=== PATIENT | female | born 1940 | race Caucasian/White ===

== ENCOUNTER 2021-04-01 07:50 | Inpatient (IN) ==
[2021-04-01] MEDS ORDERED: NORVASC PO STA (08:11)
--- NOTE | 2021-04-01 08:11 | ED.PDOC ---
General ED Provider: Dr. MARY PATTERSON Chief Complaint: Respiratory Complaint Stated Complaint: 1-2 week hx of Respiratory congestion, Coughing with worsening dyspnea at rest and exertion, having difficulty catching breath, cough non productive. Apparently has been tx by Dr Reinoso with oral antibiotics. Hx hypertension -has not taken meds Lisinopril or Norvasc Time Seen by Provider: 04/01/21 08:05 Mode of Arrival: Ambulance Information Source: Patient Exam Limitations: No limitations Primary Care Provider: SHARON REINOSO Nursing and Triage Documentation Reviewed and Agree: Yes Does patient meet sepsis criteria?: No System Inflammatory Response Syndrome: Not Applicable Sepsis Protocol: For patient's 13 years and over: Temp is 96.8 and below OR 101 and greater Pulse >90 BPM Resp >20/minute Acutely Altered Mental Status Are patient's symptoms suggestive of a new infection, such as: -Pneumonia -Skin, Soft Tissue -Endocarditis -UTI -Bone, Joint Infection -Implantable Device -Acute Abdominal Infection -Wound Infection -Meningitis -Blood Stream Catheter Infection -Unknown Respiratory Complaint Exam Shortness of Air Complaint/Exam Onset/Duration: 1 week Symptoms Are: Still present and Worse Timing: Intermittent Initial Severity: Mild Current Severity: Moderate Character: Reports Dyspnea at rest and Dyspnea on exertion Aggravating: Reports Movement, Deep breaths and Recumbent position Review of Systems Review Of Systems Constitutional: Reports Malaise and Weakness Eyes: Reports No symptoms Ears, Nose, Mouth, Throat: Reports No symptoms Respiratory: Reports Cough, Short of air and Wheezing Cardiac: Reports No symptoms GI: Reports No symptoms : Reports No symptoms Musculoskeletal: Reports No symptoms Skin: Reports No symptoms Neurological: Reports Anxiety Endocrine: Reports No symptoms Hematologic/Lymphatic: Reports No symptoms All Other Systems: Reviewed and Negative [facility] Medical History (Updated 04/01/21 @ 11:40 by YAHAIRA MATHUR RN) COPD (chronic obstructive pulmonary disease) Dyslipidemia Renal mass, right Family History (Updated 04/01/21 @ 11:41 by YAHAIRA MATHUR RN) Mother Hypertension FATHER Hypertension Surgical History H/O right nephrectomy Female Reproductive History Menstrual Age of Menarche: 14 Hx Hysterectomy: No Hx Tubal Ligation: No Date of menopause: 03/17/1955 Total pregnancies: 3 Full term: 3 Physical Exam Physical Exam Appearance: Reports Ill-appearing Ill-appearing: Moderate Pain Distress: Mild Eyes: Reports MISHEL, EOMI, Conjunctiva clear, Right pupil size and Left pupil size ENT: Reports Ears normal, Nose normal, Oropharynx normal and Dry mucosa Neck: Supple Respiratory: Reports Airway patent, Breath sounds diminished and Wheezes Cardiovascular: Reports RRR, Pulses normal and No murmur GI/: Reports Soft, Nontender, No masses, Bowel sounds normal, No Organomegaly and Bowel sounds hypoactive Musculoskeletal: Reports Normal strength Skin: Reports Warm, Dry, Normal color and Pale Neurological: Reports Sensation intact, Motor intact, Reflexes intact, Cranial nerves intact and Alert Psychiatric: Reports Affect appropriate, Mood appropriate and Anxious Interpretation Radiology Interpretation Radiology Interpretation By: Radiologist Exam Interpreted: Portable CXR ( Bibasilar opacities suspicious for pneumonia. 2. Calcific atherosclerosis. 3. Hyperexpanded lungs suggesting emphysema/chronic obstructive pulmonary disease. ) EKG Interpretation Time of EKG #1: 08:27 Rate: Normal Rhythm: Sinus Ectopy: PVCs [place]: Left ST Segment: Normal Interpretation: P_SVC and fusion complexes Critical Care Note Critical Care Note Total Critical Care Time (mins): 60 Course Course Hematology/Chemistry: 04/01/21 08:10 04/01/21 08:10 Orders, Labs, Meds: Lab Review 04/01/21 04/01/21 04/01/21 08:10 08:10 08:10 WBC 9.36 RBC 4.11 L Hgb 13.4 Hct 41.6 MCV 101.2 H MCH 32.6 H MCHC 32.2 RDW Coeff of Ashley 12.9 Plt Count 187 Immature Gran % (Auto) 0.4 Neut % (Auto) 69.1 Lymph % (Auto) 15.5 [place] % (Auto) 14.5 H Eos % (Auto) 0.3 Baso % (Auto) 0.2 Neut # (Auto) 6.5 Lymph # (Auto) 1.5 [place] # (Auto) 1.4 Eos # (Auto) 0.0 Baso # (Auto) 0.0 Immature Gran # (Auto) 0.0 PT 10.4 INR 1.00 Puncture Site Base Excess O2 Saturation ABG pH ABG pCO2 ABG pO2 ABG HCO3 ABG Total CO2 Usama Test Hemoglobin Oxyhemoglobin Carboxyhemoglobin Total Hemoglobin O2 Delivery Device FiO2 % Sodium 142.8 Potassium 3.94 Chloride 105.3 Carbon Dioxide 32.8 H Anion Gap 8.64 BUN 33.4 H Creatinine 0.95 Estimated GFR (MDRD) 57.00 BUN/Creatinine Ratio 35.15 Glucose 131.8 H Lactic Acid Calcium 10.34 H Magnesium 2.05 Ferritin Total Bilirubin 0.59 AST 28.2 ALT 15.6 Alkaline Phosphatase 41.6 L Troponin I < 0.012 Total Protein 7.28 Albumin 4.07 Globulin 3.21 Albumin/Globulin Ratio 1.26 Procalcitonin D-Dimer Urine Color Urine Clarity Urine pH Ur Specific [place] Urine Protein Urine Glucose (UA) Urine Ketones Urine Blood Urine Nitrite Urine Bilirubin Urine Urobilinogen Ur Leukocyte Esterase Urine Microscopic RBC Ur Squamous Epith Cells Amorphous Sediment Urine Bacteria Adenovirus (PCR) B. pertussis DNA (PCR) B.parapertussis DNA PCR C. pneumoniae DNA (PCR) Coronavirus OC43 (PCR) Coronavirus HKU1 (PCR) Coronavirus 229E (PCR) Coronavirus NL63 (PCR) Human Metapneumovir PCR Influenza Type A (PCR) Influenza B (RT-PCR) M. pneumoniae (PCR) Parainfluenza 1 (PCR) Parainfluenza 2 (PCR) Parainfluenza 3 (PCR) Parainfluenza 4 (PCR) RSV (PCR) Entero/Rhino (PCR) SARS-CoV-2 (PCR) 04/01/21 04/01/21 04/01/21 08:10 08:10 08:17 WBC RBC Hgb Hct MCV MCH MCHC RDW Coeff of Ashley Plt Count Immature Gran % (Auto) Neut % (Auto) Lymph % (Auto) [place] % (Auto) Eos % (Auto) Baso % (Auto) Neut # (Auto) Lymph # (Auto) [place] # (Auto) Eos # (Auto) Baso # (Auto) Immature Gran # (Auto) PT INR Puncture Site Base Excess O2 Saturation ABG pH ABG pCO2 ABG pO2 ABG HCO3 ABG Total CO2 Usama Test Hemoglobin Oxyhemoglobin Carboxyhemoglobin Total Hemoglobin O2 Delivery Device FiO2 % Sodium Potassium Chloride Carbon Dioxide Anion Gap BUN Creatinine Estimated GFR (MDRD) BUN/Creatinine Ratio Glucose Lactic Acid Calcium Magnesium Ferritin 496.00 H Total Bilirubin AST ALT Alkaline Phosphatase Troponin I Total Protein Albumin Globulin Albumin/Globulin Ratio Procalcitonin 0.10 H D-Dimer Urine Color Urine Clarity Urine pH Ur Specific [place] Urine Protein Urine Glucose (UA) Urine Ketones Urine Blood Urine Nitrite Urine Bilirubin Urine Urobilinogen Ur Leukocyte Esterase Urine Microscopic RBC Ur Squamous Epith Cells Amorphous Sediment Urine Bacteria Adenovirus (PCR) Not detected B. pertussis DNA (PCR) Not detected B.parapertussis DNA PCR Not detected C. pneumoniae DNA (PCR) Not detected Coronavirus OC43 (PCR) Not detected Coronavirus HKU1 (PCR) Not detected Coronavirus 229E (PCR) Not detected Coronavirus NL63 (PCR) Not detected Human Metapneumovir PCR Not detected Influenza Type A (PCR) Not detected Influenza B (RT-PCR) Not detected M. pneumoniae (PCR) Not detected Parainfluenza 1 (PCR) Not detected Parainfluenza 2 (PCR) Not detected Parainfluenza 3 (PCR) Not detected Parainfluenza 4 (PCR) Not detected RSV (PCR) Not detected Entero/Rhino (PCR) Detected H SARS-CoV-2 (PCR) Not detected 04/01/21 04/01/21 04/01/21 08:33 08:33 08:39 WBC RBC Hgb Hct MCV MCH MCHC RDW Coeff of Ashley Plt Count Immature Gran % (Auto) Neut % (Auto) Lymph % (Auto) [place] % (Auto) Eos % (Auto) Baso % (Auto) Neut # (Auto) Lymph # (Auto) [place] # (Auto) Eos # (Auto) Baso # (Auto) Immature Gran # (Auto) PT INR Puncture Site R rad Base Excess 8.5 H O2 Saturation 71.0 L ABG pH 7.29 L* ABG pCO2 73.0 H ABG pO2 42.0 L* ABG HCO3 35.1 H ABG Total CO2 37.3 H Usama Test Y Hemoglobin 0.3 Oxyhemoglobin 75.1 L Carboxyhemoglobin 2.8 H Total Hemoglobin 13.1 O2 Delivery Device FiO2 % 21.0 Sodium Potassium Chloride Carbon Dioxide Anion Gap BUN Creatinine Estimated GFR (MDRD) BUN/Creatinine Ratio Glucose Lactic Acid 0.70 Calcium Magnesium Ferritin Total Bilirubin AST ALT Alkaline Phosphatase Troponin I Total Protein Albumin Globulin Albumin/Globulin Ratio Procalcitonin D-Dimer 653.93 H Urine Color Urine Clarity Urine pH Ur Specific [place] Urine Protein Urine Glucose (UA) Urine Ketones Urine Blood Urine Nitrite Urine Bilirubin Urine Urobilinogen Ur Leukocyte Esterase Urine Microscopic RBC Ur Squamous Epith Cells Amorphous Sediment Urine Bacteria Adenovirus (PCR) B. pertussis DNA (PCR) B.parapertussis DNA PCR C. pneumoniae DNA (PCR) Coronavirus OC43 (PCR) Coronavirus HKU1 (PCR) Coronavirus 229E (PCR) Coronavirus NL63 (PCR) Human Metapneumovir PCR Influenza Type A (PCR) Influenza B (RT-PCR) M. pneumoniae (PCR) Parainfluenza 1 (PCR) Parainfluenza 2 (PCR) Parainfluenza 3 (PCR) Parainfluenza 4 (PCR) RSV (PCR) Entero/Rhino (PCR) SARS-CoV-2 (PCR) 04/01/21 04/01/21 09:10 09:38 WBC RBC Hgb Hct MCV MCH MCHC RDW Coeff of Ashley Plt Count Immature Gran % (Auto) Neut % (Auto) Lymph % (Auto) [place] % (Auto) Eos % (Auto) Baso % (Auto) Neut # (Auto) Lymph # (Auto) [place] # (Auto) Eos # (Auto) Baso # (Auto) Immature Gran # (Auto) PT INR Puncture Site R rad Base Excess 7.4 H O2 Saturation 83.4 L ABG pH 7.36 ABG pCO2 58.0 H ABG pO2 50.0 L* ABG HCO3 32.8 H ABG Total CO2 34.6 H [place] Test Y Hemoglobin 0.3 Oxyhemoglobin 85.8 L Carboxyhemoglobin 2.7 H Total Hemoglobin 13.1 O2 Delivery Device Vapotherm FiO2 % 28.0 Sodium Potassium Chloride Carbon Dioxide Anion Gap BUN Creatinine Estimated GFR (MDRD) BUN/Creatinine Ratio Glucose Lactic Acid Calcium Magnesium Ferritin Total Bilirubin AST ALT Alkaline Phosphatase Troponin I Total Protein Albumin Globulin Albumin/Globulin Ratio Procalcitonin D-Dimer Urine Color Yellow Urine Clarity Clear Urine pH 5.0 Ur Specific [place] >=1.030 Urine Protein 3+ H Urine Glucose (UA) Negative Urine Ketones Negative Urine Blood 1+ H Urine Nitrite Positive H Urine Bilirubin Negative Urine Urobilinogen 0.2 Ur Leukocyte Esterase Negative Urine Microscopic RBC 0-2 Ur Squamous Epith Cells Not present Amorphous Sediment 2+ Urine Bacteria 2+ Adenovirus (PCR) B. pertussis DNA (PCR) B.parapertussis DNA PCR C. pneumoniae DNA (PCR) Coronavirus OC43 (PCR) Coronavirus HKU1 (PCR) Coronavirus 229E (PCR) Coronavirus NL63 (PCR) Human Metapneumovir PCR Influenza Type A (PCR) Influenza B (RT-PCR) M. pneumoniae (PCR) Parainfluenza 1 (PCR) Parainfluenza 2 (PCR) Parainfluenza 3 (PCR) Parainfluenza 4 (PCR) RSV (PCR) Entero/Rhino (PCR) SARS-CoV-2 (PCR) Orders Category Date Time Status ADMIT PATIENT [facility]PAT[facility] ADMISSION 04/01/21 10:35 Active ABG DRAW REQUEST DAILY@0600 CARDIO 04/02/21 06:00 Ordered ABG DRAW REQUEST DAILY@0600 CARDIO 04/03/21 06:00 Ordered ABG DRAW REQUEST DAILY@0600 CARDIO 04/04/21 06:00 Ordered ABG DRAW REQUEST DAILY@0600 CARDIO 04/05/21 06:00 Ordered ABG DRAW REQUEST Stat CARDIO 04/01/21 08:12 Completed ABG DRAW REQUEST Stat CARDIO 04/01/21 09:30 Completed EKG-(ED ONLY) Stat CARDIO 04/01/21 08:12 Completed METERED DOSE INHALATION Routine CARDIO 04/01/21 08:13 Completed OXYGEN Routine CARDIO 04/01/21 08:12 Active VAPOTHERM Routine CARDIO 04/01/21 09:14 Active ACTIVITY .Up With Assistance CARE 04/01/21 10:38 Active BLOOD GLUCOSE MONITORING (MED/SURG) 0630,1100,[id number] CARE 04/01/21 10:39 Active INTAKE & OUTPUT Q8HR CARE 04/01/21 10:38 Active TELEMETRY MONITORING TELE CARE 04/01/21 10:35 Active VITAL SIGNS Q4HR CARE 04/01/21 10:38 Active REGULAR DIET DIETARY 04/01/21 Lunch Ordered ABG COOX DAILY@0600 LAB 04/02/21 06:00 Ordered ABG COOX DAILY@0600 LAB 04/03/21 06:00 Ordered ABG COOX Stat LAB 04/01/21 08:39 Completed ARTERIAL BLOOD GAS [ABG COOX] Stat LAB 04/01/21 09:38 Completed BLOOD CULTURE (ED ONLY) Stat LAB 04/01/21 08:33 Received CBC W/ AUTO DIFF DAILY@0600 LAB 04/02/21 06:00 Ordered CBC W/ AUTO DIFF DAILY@0600 LAB 04/03/21 06:00 Ordered CBC W/ AUTO DIFF Stat LAB 04/01/21 08:10 Completed CMP [COMPREHENSIVE METABOLIC PANEL] Stat LAB 04/01/21 08:10 Completed COMPREHENSIVE METABOLIC PANEL DAILY@0600 LAB 04/02/21 06:00 Ordered COMPREHENSIVE METABOLIC PANEL DAILY@0600 LAB 04/03/21 06:00 Ordered D-DIMER Stat LAB 04/01/21 08:33 Completed FERRITIN Stat LAB 04/01/21 08:10 Completed LACTIC ACID Stat LAB 04/01/21 08:33 Completed MAGNESIUM Stat LAB 04/01/21 08:10 Completed PROCALCITONIN Stat LAB 04/01/21 08:10 Completed PT WITH INR Stat LAB 04/01/21 08:10 Completed RESPIRATORY PANEL 2.1 (PCR) Stat LAB 04/01/21 08:17 Completed SPUTUM CULTURE Stat LAB 04/01/21 08:17 Uncollected TROPONIN I Q8H LAB 04/01/21 16:45 Ordered TROPONIN I Q8H LAB 04/02/21 00:45 Ordered TROPONIN I Stat LAB 04/01/21 08:10 Completed UA [URINALYSIS C & S IF INDICATED] Stat LAB 04/01/21 09:10 Completed Albuterol Inhaler(with Spacer) [Ventolin Hfa (Per Puff- MEDS 04/01/21 08:12 Discontinued with Spacer)] 2 puff IH ONCE STA Amlodipine Besylate [Norvasc] MEDS 04/01/21 08:11 Discontinued 10 mg PO ONCE STA Azithromycin [Zithromax] MEDS 04/01/21 10:38 Discontinued 500 mg PO ONCE STA Ceftriaxone/D5w 1 gm Premix [Rocephin 1 gm/50 ml D5w] MEDS 04/02/21 09:00 Active 1 gm in 50 ml IV DAILY Ceftriaxone/D5w 1 gm Premix [Rocephin 1 gm/50 ml D5w] MEDS 04/01/21 09:45 Discontinued 1 gm in 50 ml IV ONCE Famotidine [Pepcid] MEDS 04/01/21 09:47 Discontinued 40 mg PO ONCE STA Methylprednisolone Sod Succ/Pf [Solu-Medrol 125 mg] MEDS 04/01/21 10:41 Discontinued 125 mg IVP ONCE ONE Methylprednisolone Sod Succ/Pf [Solu-Medrol 40 mg] MEDS 04/01/21 13:00 Discontinued 40 mg IVP Q8HR Ondansetron HCl/Pf [Zofran 4 mg/2 ml] MEDS 04/01/21 10:38 Active 4 mg IVP Q6H PRN RESUSCITATION STATUS Routine OTHERS 04/01/21 10:38 Completed CXR [CHEST, 1V AP ONLY] Stat RADS 04/01/21 09:00 Completed PT CONSULT Routine THERAPIES 04/01/21 Ordered Medications Generic Name Dose Route Start Last Admin Trade Name Freq PRN Reason Stop Dose Admin Albuterol/Ipratropium 3 ml 04/01/21 14:00 Ipratropium/Albuterol Vial.[facility] RTTID ABA Amlodipine Besylate 5 mg 04/01/21 21:00 Amlodipine Besylate 5 Mg Tablet PO BEDTIME ABA Aspirin 81 mg 04/01/21 13:00 04/01/21 13:48 Aspirin 81 Mg Tablet. PO 81 mg DAILYWM ABA Administration Budesonide 1 mg 04/01/21 20:00 Budesonide 1 Mg/2 Ml Vial.[facility] [id number] [facility] Carvedilol 25 mg 04/01/21 17:00 Carvedilol 12.5 Mg Tablet PO BIDWM ABA Fenofibrate 160 mg 04/01/21 13:00 04/01/21 13:48 Fenofibrate 160 Mg Tablet PO 160 mg DAILY ABA Administration CEFTRIAXONE/D5W 1 GM PREMIX 1 gm in 50 mls @ 75 mls/hr 04/02/21 09:00 Rocephin 1 Gm/50 Ml D5w IV 04/05/21 08:59 DAILY ABA Doxycycline Hyclate 100 mg/ 100 mls @ 50 mls/hr 04/01/21 13:00 04/01/21 13:47 Sodium Chloride IV 04/04/21 12:59 50 mls/hr Q12HR ABA Administration Sodium Chloride 1,000 mls @ 75 mls/hr 04/01/21 13:00 04/01/21 13:48 Sodium Chloride IV 04/02/21 02:19 75 mls/hr .[id number] ABA Administration Levothyroxine Sodium 100 mcg 04/01/21 13:00 04/01/21 13:48 Levothyroxine Sodium 100 Mcg Tablet PO 100 mcg QDAC ABA Administration Lisinopril 40 mg 04/01/21 13:00 04/01/21 13:48 Lisinopril 40 Mg Tablet PO 40 mg DAILY ABA Administration Lovastatin 40 mg 04/01/21 17:00 Lovastatin 20 Mg Tablet PO QPM ABA Methylprednisolone Sodium Succinate 125 mg 04/01/21 13:00 04/01/21 13:06 Methylprednisolone Sod Succ/Pf 125 Mg/2 Ml Vial IVP Not Given Q8HR ABA Ondansetron HCl 4 mg 04/01/21 10:38 Ondansetron Hcl/Pf 4 Mg/2 Ml Sdv IVP Q6H PRN Nausea / Vomiting Discontinued Medications Generic Name Dose Route Start Last Admin Trade Name Freq PRN Reason Stop Dose Admin Albuterol Sulfate 2 puff 04/01/21 08:12 04/01/21 08:39 Albuterol Sulfate (Ventolin Hfa) 18 Gm 1 Puff With Spacer IH 04/01/21 08:13 2 puff ONCE STA Administration Amlodipine Besylate 10 mg 04/01/21 08:11 04/01/21 08:15 Amlodipine Besylate 5 Mg Tablet PO 04/01/21 08:12 10 mg ONCE STA Administration Azithromycin 500 mg 04/01/21 10:38 04/01/21 10:49 Azithromycin 250 Mg Tablet PO 04/01/21 10:39 500 mg ONCE STA Administration Famotidine 40 mg 04/01/21 09:47 04/01/21 09:52 Famotidine 20 Mg Tablet PO 04/01/21 09:48 40 mg ONCE STA Administration CEFTRIAXONE/D5W 1 GM PREMIX 1 gm in 50 mls @ 75 mls/hr 04/01/21 09:45 04/01/21 09:53 Rocephin 1 Gm/50 Ml D5w IV 04/01/21 10:24 75 mls/hr ONCE STA Administration Sodium Chloride 1,000 mls @ 75 mls/hr 04/01/21 13:00 Sodium Chloride IV .[id number] ABA Methylprednisolone Sodium Succinate 40 mg 04/01/21 13:00 Methylprednisolone Sod Succ/Pf 40 Mg/Ml Vial IVP Q8HR ABA Methylprednisolone Sodium Succinate 125 mg 04/01/21 10:41 04/01/21 10:49 Methylprednisolone Sod Succ/Pf 125 Mg/2 Ml Vial IVP 04/01/21 10:42 125 mg ONCE ONE Administration Vital Signs: Temp Pulse Resp BP Pulse Ox 04/01/21 10:15 61 20 93 L 12/16/21 10:00 93 L 04/01/21 09:42 62 22 159/83 H 91 L 04/01/21 09:04 98 04/01/21 08:46 73 28 H 198/77 H 99 04/01/21 08:13 97.1 F L 69 21 210/88 H 98 04/01/21 07:56 97.1 F L 85 24 212/85 H 82 L Discharge Plan Discharge Patient Disposition: ADMITTED INPATIENT Discharge Problem: Acute respiratory disease, Acute respiratory failure with hypoxia and hypercarbia, Pneumonitis, Hypertension, Hypothyroidism (acquired) ED Provider: MARY PATTERSON Condition: Stable Physician Progress Note: []
[2021-04-01] MEDS ORDERED: VENTOLIN HFA (PER PUFF-WITH SPACER) IH STA (08:12)
[2021-04-01 08:42] LABS: ABG O2 HGB 75.1 % (95-100); BEecf 8.5 (-2.0-3.0); COHb 2.8 (0.5-1.5); HCO3 35.1 (21-28); MetHb 0.3 (0-1.5); TCO2 37.3 (19-24); tHb 13.1 g/dl (11.7-17.4)
[2021-04-01 08:45] LABS: BASOPHILS % (AUTO) 0.2 % (0.0-3.0); EOSINOPHILS % (AUTO) 0.3 % (0.0-7.0); HEMATOCRIT 41.6 % (37.0-47.0); HEMOGLOBIN 13.4 g/dl (12.0-16.0); IMMATURE GRANULOCYTE % (AUTO) 0.4 % (0.0-5.0); LYMPHOCYTES # (AUTO) 1.5 K/uL (0.60-3.4); LYMPHOCYTES % (AUTO) 15.5 (10.0-50.0); MEAN CORPUSCULAR HEMOGLOBIN 32.6 pg (27.0-31.0); MEAN CORPUSCULAR HGB CONC 32.2 (31.8-35.4); MEAN CORPUSCULAR VOLUME 101.2 fl (81.0-99.0); MONOCYTES # (AUTO) 1.4 K/uL (0.4-2.0); MONOCYTES % (AUTO) 14.5 (0-10); NEUTROPHILS # (AUTO) 6.5 K/ul (2.0-6.9); NEUTROPHILS % (AUTO) 69.1 % (42.2-75.2); PLATELET COUNT 187 10^3/uL (140-440); RDW COEFFICIENT OF VARIATION 12.9 % (11.6-14.8); RED BLOOD COUNT 4.11 10^6/ul (4.20-5.40); WHITE BLOOD COUNT 9.36 K/ul (4.6-10.2)
[2021-04-01 08:46] LABS: ABG PH 7.29 (7.35-7.45)
[2021-04-01 08:53] LABS: ALANINE AMINOTRANSFERASE 15.6 U/L (0-35); ALBUMIN 4.07 g/dL (3.5-5.0); ALKALINE PHOSPHATASE 41.6 U/L (53-141); ASPARTATE AMINO TRANSFERASE 28.2 U/L (14-36); BILIRUBIN,TOTAL 0.59 mg/dL (0.2-1.3); BLOOD UREA NITROGEN 33.4 mg/dL (7-17); CALCIUM 10.34 mg/dL (8.4-10.2); CARBON DIOXIDE 32.8 mmol/L (22-30.0); CHLORIDE 105.3 mmol/L (98-107); CREATININE 0.95 mg/dL (0.60-1.30); GLUCOSE 131.8 mg/dL (74-106); MAGNESIUM 2.05 mg/dL (1.6-2.3); POTASSIUM 3.94 mmol/L (3.5-5.1); SODIUM 142.8 mmol/L (134.5-145); TOTAL PROTEIN 7.28 g/dL (6.3-8.2)
[2021-04-01 08:56] LABS: PROTHROMBIN TIME 10.4 SEC (9.3-11.0)
[2021-04-01 09:13] LABS: TROPONIN I < 0.012 ng/ml (0.0000-0.120)
[2021-04-01 09:21] LABS: BILIRUBIN,URINE Negative (NEGATIVE); CLARITY,URINE Clear (CLEAR); COLOR,URINE Yellow (YELLOW); GLUCOSE, URINE (UA) Negative (NEGATIVE); KETONES,URINE Negative (NEGATIVE); LEUKOCYTE ESTERASE ,URINE Negative (NEGATIVE); NITRITE,URINE Positive (NEGATIVE); PROTEIN,URINE 3+ (NEGATIVE); URINE, BLOOD 1+ (NEGATIVE); UROBILINOGEN,URINE 0.2 (0.2)
[2021-04-01 09:28] LABS: SQUAMOUS EPITHELIAL CELL,UR NOT PRESENT (0-5)
[2021-04-01 09:29] LABS: AMORPHOUS SEDIMENT,UR 2+ (NOT PRESENT); BACTERIA,URINE 2+ (NOT PRESENT); URINE RBC, MICROSCOPIC 0-2 (0-2)
[2021-04-01 09:41] LABS: ABG O2 HGB 85.8 % (95-100); ABG PH 7.36 (7.35-7.45); BEecf 7.4 (-2.0-3.0); COHb 2.7 (0.5-1.5); HCO3 32.8 (21-28); MetHb 0.3 (0-1.5); TCO2 34.6 (19-24); sO2 83.4 % (94-98); tHb 13.1 g/dl (11.7-17.4)
[2021-04-01] MEDS ORDERED: ROCEPHIN 1 GM/50 ML D5W 1 GM/50 ML BAG IV STA (09:45)
[2021-04-01] MEDS ORDERED: PEPCID PO STA (09:47)
--- NOTE | 2021-04-01 09:47 | DI ---
EXAM: Frontal view of the chest. HISTORY: Concern for COVID-19 pneumonia. Shortness of breath. COMPARISON: Radiograph 03/26/2019. FINDINGS: Bones appear diffusely demineralized. Old left proximal humerus fracture noted. Normal heart size. Calcific atherosclerosis. Bibasilar ground-glass opacities. Hyperexpanded lungs. No visible effusion or pneumothorax. No acute osseous abnormality. IMPRESSION: 1. Bibasilar opacities suspicious for pneumonia. 2. Calcific atherosclerosis. 3. Hyperexpanded lungs suggesting emphysema/chronic obstructive pulmonary disease.
[2021-04-01 10:06] LABS: BORDETELLA PARAPERTUSSIS (PCR) NOT DETECTED (NOT DETECT); BORDETELLA PERTUSSIS (PCR) NOT DETECTED (NOT DETECT); CHLAMYDIA PNEUMONIAE (PCR) NOT DETECTED (NOT DETECT); CORONAVIRUS 229E (PCR) NOT DETECTED (NOT DETECT); CORONAVIRUS HKU1 (PCR) NOT DETECTED (NOT DETECT); CORONAVIRUS NL63 (PCR) NOT DETECTED (NOT DETECT); CORONAVIRUS OC43 (PCR) NOT DETECTED (NOT DETECT); HUMAN METAPNEUMOVIRUS (PCR) NOT DETECTED (NOT DETECT); INFLUENZA B (PCR) NOT DETECTED (NOT DETECT); MYCOPLASMA PNEUMONIAE (PCR) NOT DETECTED (NOT DETECT); PARAINFLUENZA VIRUS 1 (PCR) NOT DETECTED (NOT DETECT); PARAINFLUENZA VIRUS 2 (PCR) NOT DETECTED (NOT DETECT); PARAINFLUENZA VIRUS 3 (PCR) NOT DETECTED (NOT DETECT); PARAINFLUENZA VIRUS 4 (PCR) NOT DETECTED (NOT DETECT); RESPIRATORY SYNCYTIAL V (PCR) NOT DETECTED (NOT DETECT); SARS_COV_2 (PCR) NOT DETECTED (NOT DETECT)
[2021-04-01 10:32] LABS: ADENOVIRUS (PCR) NOT DETECTED (NOT DETECT); HUMAN RHINOVIRUS/ENTEROV (PCR) DETECTED (NOT DETECT)
[2021-04-01] MEDS ORDERED: XOPENEX 0.63 MG NEB PRN (10:38)
[2021-04-01] MEDS ORDERED: ZITHROMAX PO STA (10:38)
[2021-04-01] MEDS ORDERED: ZOFRAN 4 MG/2 ML IVP PRN (10:38)
[2021-04-01] MEDS ORDERED: SOLU-MEDROL 125 MG IVP ONE (10:41)
[2021-04-01 11:37] VITALS: BMI 27.6
[2021-04-01] MEDS ORDERED: SOLU-MEDROL 40 MG IVP SCH ×2 (13:00)
[2021-04-01] MEDS ORDERED: SODIUM CHLORIDE 1,000 ML IV SCH ×2 (13:00)
[2021-04-01] MEDS ORDERED: FENOFIBRATE NANOCRYSTALLIZED 145 MG PO SCH (13:00)
[2021-04-01] MEDS: SOLU-MEDROL 125 MG IVP SCH ×2 (13:06→21:19)
[2021-04-01] MEDS: DOXY-100 100 MG in SODIUM CHLORIDE 100ML 100 ML IV SCH ×2 (13:47→21:19)
[2021-04-01] MEDS: ZESTRIL PO SCH (13:48)
[2021-04-01] MEDS: SYNTHROID PO SCH (13:48)
[2021-04-01] MEDS: ASPIRIN EC PO SCH (13:48)
[2021-04-01] MEDS: TRIGLIDE PO SCH (13:48)
[2021-04-01] MEDS: DUONEB NEB SCH ×2 (14:18→21:49)
[2021-04-01] MEDS: COREG PO SCH (17:33)
[2021-04-01] MEDS: MEVACOR PO SCH (17:33)
[2021-04-01] MEDS: PULMICORT 1 MG/2 ML NEB SCH (20:55)
[2021-04-01] MEDS ORDERED: NORVASC PO SCH (21:00)
[2021-04-01] MEDS: HUMULIN R SUBCUT PRN (21:19)
[2021-04-02 04:21] LABS: ABG O2 HGB 90.7 % (95-100); ABG PH 7.37 (7.35-7.45); BEecf 7.1 (-2.0-3.0); COHb 1.5 (0.5-1.5); HCO3 32.4 (21-28); MetHb 0.2 (0-1.5); TCO2 34.1 (19-24); tHb 15.2 g/dl (11.7-17.4)
[2021-04-02] MEDS: DUONEB NEB SCH ×3 (04:48→20:25)
[2021-04-02] MEDS: PULMICORT 1 MG/2 ML NEB SCH ×2 (04:48→20:25)
[2021-04-02] MEDS: SOLU-MEDROL 125 MG IVP SCH ×3 (05:37→20:57)
[2021-04-02] MEDS: SYNTHROID PO SCH (05:38)
[2021-04-02] MEDS: HUMULIN R SUBCUT PRN ×4 (05:45→21:22)
[2021-04-02 06:29] LABS: HEMATOCRIT 39.6 % (37.0-47.0); HEMOGLOBIN 12.8 g/dl (12.0-16.0); IMMATURE GRANULOCYTE % (AUTO) 0.6 % (0.0-5.0); LYMPHOCYTES # (AUTO) 0.7 K/uL (0.60-3.4); LYMPHOCYTES % (AUTO) 13.2 (10.0-50.0); MEAN CORPUSCULAR HEMOGLOBIN 32.6 pg (27.0-31.0); MEAN CORPUSCULAR HGB CONC 32.3 (31.8-35.4); MEAN CORPUSCULAR VOLUME 100.8 fl (81.0-99.0); MONOCYTES # (AUTO) 0.1 K/uL (0.4-2.0); MONOCYTES % (AUTO) 1.8 (0-10); NEUTROPHILS # (AUTO) 4.3 K/ul (2.0-6.9); NEUTROPHILS % (AUTO) 84.4 % (42.2-75.2); PLATELET COUNT 196 10^3/uL (140-440); RDW COEFFICIENT OF VARIATION 12.8 % (11.6-14.8); RED BLOOD COUNT 3.93 10^6/ul (4.20-5.40); WHITE BLOOD COUNT 5.14 K/ul (4.6-10.2)
[2021-04-02 06:55] LABS: ALANINE AMINOTRANSFERASE 13.3 U/L (0-35); ALBUMIN 3.69 g/dL (3.5-5.0); ALKALINE PHOSPHATASE 39.3 U/L (53-141); ASPARTATE AMINO TRANSFERASE 21.8 U/L (14-36); BILIRUBIN,TOTAL 0.49 mg/dL (0.2-1.3); BLOOD UREA NITROGEN 34.3 mg/dL (7-17); CALCIUM 9.84 mg/dL (8.4-10.2); CARBON DIOXIDE 33.4 mmol/L (22-30.0); CHLORIDE 107.7 mmol/L (98-107); CREATININE 1.01 mg/dL (0.60-1.30); GLUCOSE 163.1 mg/dL (74-106); POTASSIUM 3.95 mmol/L (3.5-5.1); SODIUM 143.2 mmol/L (134.5-145); TOTAL PROTEIN 6.81 g/dL (6.3-8.2)
[2021-04-02 06:58] LABS: TROPONIN I < 0.012 ng/ml (0.0000-0.120)
[2021-04-02] MEDS ORDERED: ZESTRIL PO SCH (09:00)
--- NOTE | 2021-04-02 09:07 | PCM.PROG ---
Attending Provider: ATTENDING PROVIDER: Dr. SHARON REINOSO DATE OF SERVICE: 04/02/21 SUBJECTIVE: This 80 year old /WHITE F was hospitalized 04/01/21 with respiratory with increasing shortness of breath and CO2 retention. The patient is on Vapotherm. PO2 more than 50. PCO2 is in same range with normal pH. Feeling a lot better. No distress. REVIEW OF SYSTEMS: CONSTITUTIONAL: No night sweats. No fatigue, malaise, lethargy. No fever or chills. HEENT: Eyes: No visual changes. No eye pain. No eye discharge. ENT: No runny nose. No epistaxis. No sinus pain. No odynophagia. No congestion. RESPIRATORY: No cough, no congestion. No hemoptysis. No shortness of breath. CARDIOVASCULAR: No angina symptoms. No CHF symptoms. No atypical chest pain for CAD. No palpitations. No orthopnea.. GASTROINTESTINAL: No abdominal pain. No nausea or vomiting. No diarrhea or constipation. No hematemesis. No hematochezia. GENITOURINARY: No urgency. No frequency. No dysuria. No hematuria. No obstructive symptoms. No discharge. No pain. No significant abnormal bleeding. MUSCULOSKELETAL: No musculoskeletal pain; no joint swelling. NEUROLOGICAL: Awake, alert, oriented to time, place and person. No headache. No neck pain. No syncope. No seizures. No dizziness. PSYCHIATRIC: Not anxious. No depression. No suicidal thoughts. No homicidal thoughts. SKIN: No rash. No lesions. No wounds. ENDOCRINE: No unexplained weight loss. No weight gain. HEMATOLOGIC/LYMPHATIC: No anemia. No purpura. No petechiae. No prolonged or excessive bleeding. No palpable lymph nodes. PHYSICAL EXAMINATION: GENERAL: The patient is awake, alert and oriented, lying in bed in no distress. VITAL SIGNS: Temperature 97.8 F, Pulse 67, Respiratory Rate 18, BP 168/84, Pulse Ox 94% HEENT: Head normocephalic, atraumatic. Eyes: Extraocular muscles are intact. Pupils are equal, round and reactive to light and accommodation. Ears: No lesions. Nose appeared normal. Throat: No exudate or erythema. NECK: Supple. No JVD, no carotid bruit. No lymphadenopathy or thyromegaly. LUNGS: Decreased breath sounds. Clear to auscultation. Percussion note normal. Chest symmetrical. HEART: S1, S2, no S3. No murmurs. No cyanosis or clubbing. No ascites. Pulses: Dorsalis pedis and posterior tibial pulses +1 to +2 both sides. ABDOMEN: Soft. Non-tender. Bowel sounds active. No CVA tenderness. No mass felt. EXTREMITIES: No edema. Full range of motion of all extremities, equal. NEUROLOGIC: No focal deficit. Cranial nerves II through XII are grossly intact. No headache, no double vision or headache. SKIN: Warm and dry. Intact. Turgor-normal. LYMPHATIC: No palpable lymph nodes/no lymphedema. MUSCULOSKELETAL: Normal joints with no swelling. Muscle tone is normal. LAB REVIEW: 04/02/21 05:00 04/02/21 05:00 04/02/21 05:00: Sodium 143.2, Potassium 3.95, Chloride 107.7 H, Carbon Dioxide 33.4 H, Anion Gap 6.05, BUN 34.3 H, Creatinine 1.01, Estimated GFR (MDRD) 53.00, BUN/Creatinine Ratio 33.96, Glucose 163.1 H, Calcium 9.84, Total Bilirubin 0.49, AST 21.8, ALT 13.3, Alkaline Phosphatase 39.3 L, Troponin I < 0.012, Total Protein 6.81, Albumin 3.69, Globulin 3.12, Albumin/Globulin Ratio 1.18 04/02/21 05:00: WBC 5.14, RBC 3.93 L, Hgb 12.8, Hct 39.6, MCV 100.8 H, MCH 32.6 H, MCHC 32.3, RDW Coeff of Ashley 12.8, Plt Count 196, Immature Gran % (Auto) 0.6, Neut % (Auto) 84.4 H, Lymph % (Auto) 13.2, [place] % (Auto) 1.8, Eos % (Auto) 0.0, Baso % (Auto) 0.0, Neut # (Auto) 4.3, Lymph # (Auto) 0.7, [place] # (Auto) 0.1 L, Eos # (Auto) 0.0, Baso # (Auto) 0.0, Immature Gran # (Auto) 0.0 04/02/21 04:15: Puncture Site Lrad, Base Excess 7.1 H, O2 Saturation 91.0 L, ABG pH 7.37, ABG pCO2 56.0 H, ABG pO2 63.0 L, ABG HCO3 32.4 H, ABG Total CO2 34.1 H, Usama Test +, Hemoglobin 0.2, Oxyhemoglobin 90.7 L, Carboxyhemoglobin 1.5, Total Hemoglobin 15.2, O2 Delivery Device Vapotherm, FiO2 % 35.0 04/01/21 16:51: Troponin I 0.051 04/01/21 11:10: Free T4 2.03 04/01/21 09:38: Puncture Site R rad, Base Excess 7.4 H, O2 Saturation 83.4 L, ABG pH 7.36, ABG pCO2 58.0 H, ABG pO2 50.0 L*, ABG HCO3 32.8 H, ABG Total CO2 34.6 H, Usama Test Y, Hemoglobin 0.3, Oxyhemoglobin 85.8 L, Carboxyhemoglobin 2.7 H, Total Hemoglobin 13.1, O2 Delivery Device Vapotherm, FiO2 % 28.0 04/01/21 09:10: Urine Color Yellow, Urine Clarity Clear, Urine pH 5.0, Ur Specific [place] >=1.030, Urine Protein 3+ H, Urine Glucose (UA) Negative, Urine Ketones Negative, Urine Blood 1+ H, Urine Nitrite Positive H, Urine Bilirubin Negative, Urine Urobilinogen 0.2, Ur Leukocyte Esterase Negative, Urine Microscopic RBC 0-2, Ur Squamous Epith Cells Not present, Amorphous Sediment 2+, Urine Bacteria 2+ 04/01/21 08:39: Puncture Site R rad, Base Excess 8.5 H, O2 Saturation 71.0 L, ABG pH 7.29 L*, ABG pCO2 73.0 H, ABG pO2 42.0 L*, ABG HCO3 35.1 H, ABG Total CO2 37.3 H, Usama Test Y, Hemoglobin 0.3, Oxyhemoglobin 75.1 L, Carboxyhemoglobin 2.8 H, Total Hemoglobin 13.1, FiO2 % 21.0 04/01/21 08:33: Lactic Acid 0.70 04/01/21 08:33: D-Dimer 653.93 H 04/01/21 08:17: Adenovirus (PCR) Not detected, B. pertussis DNA (PCR) Not detected, B.parapertussis DNA PCR Not detected, C. pneumoniae DNA (PCR) Not detected, Coronavirus OC43 (PCR) Not detected, Coronavirus HKU1 (PCR) Not detected, Coronavirus 229E (PCR) Not detected, Coronavirus NL63 (PCR) Not detected, Human Metapneumovir PCR Not detected, Influenza Type A (PCR) Not detected, Influenza B (RT-PCR) Not detected, M. pneumoniae (PCR) Not detected, Parainfluenza 1 (PCR) Not detected, Parainfluenza 2 (PCR) Not detected, Parainfluenza 3 (PCR) Not detected, Parainfluenza 4 (PCR) Not detected, RSV (PCR) Not detected, Entero/Rhino (PCR) Detected H, SARS-CoV-2 (PCR) Not detected 04/01/21 08:10: Ferritin 496.00 H 04/01/21 08:10: Procalcitonin 0.10 H 04/01/21 08:10: PT 10.4, INR 1.00 04/01/21 08:10: Sodium 142.8, Potassium 3.94, Chloride 105.3, Carbon Dioxide 32.8 H, Anion Gap 8.64, BUN 33.4 H, Creatinine 0.95, Estimated GFR (MDRD) 57.00, BUN/Creatinine Ratio 35.15, Glucose 131.8 H, Calcium 10.34 H, Magnesium 2.05, Total Bilirubin 0.59, AST 28.2, ALT 15.6, Alkaline Phosphatase 41.6 L, Troponin I < 0.012, Total Protein 7.28, Albumin 4.07, Globulin 3.21, Albumin/Globulin Ratio 1.26 04/01/21 08:10: WBC 9.36, RBC 4.11 L, Hgb 13.4, Hct 41.6, MCV 101.2 H, MCH 32.6 H, MCHC 32.2, RDW Coeff of Ashley 12.9, Plt Count 187, Immature Gran % (Auto) 0.4, Neut % (Auto) 69.1, Lymph % (Auto) 15.5, [place] % (Auto) 14.5 H, Eos % (Auto) 0.3, Baso % (Auto) 0.2, Neut # (Auto) 6.5, Lymph # (Auto) 1.5, [place] # (Auto) 1.4, Eos # (Auto) 0.0, Baso # (Auto) 0.0, Immature Gran # (Auto) 0.0 ASSESSMENT: Please see below. 1. Chronic respiratory failure decompensated seems to be better now PLAN: 1. Continue steroids and NEBS 2. Zestril 40mg BID Plan and coordination of the patient's care discussed in the presence of Head Rigger and nurse. SCRIBED BY: KATIA CHILDRESS [employer] Filter Operator scribed while in presence of service performed by Dr. SHARON REINOSO on 04/02/21 ([id number])
[2021-04-02] MEDS: ASPIRIN EC PO SCH (09:32)
[2021-04-02] MEDS: ZESTRIL PO SCH (09:32)
[2021-04-02] MEDS: TRIGLIDE PO SCH (09:32)
[2021-04-02] MEDS: ROCEPHIN 1 GM/50 ML D5W 1 GM/50 ML BAG IV SCH (09:33)
[2021-04-02] MEDS: NORVASC PO SCH ×2 (09:33→20:57)
[2021-04-02] MEDS: COREG PO SCH ×2 (09:33→16:28)
--- NOTE | 2021-04-02 10:25 | HP ---
DATE OF SERVICE: 04/01/2021 REASON FOR HOSPITALIZATION/HISTORY OF PRESENT ILLNESS: 80 year old white female who present to the emergency room complaining of cough, congestion and shortness of breath at rest. She had called into the office complaining of upper respiratory infection on the and she refused to COVID test. She complained of cough and headache. She has not been vaccinated for COVID. We called her in a Z-pack 250mg and Prednisone 10mg PO BID. PAST MEDICAL HISTORY: Chronic kidney disease stage III to IV Smoker LVH Hypertension Increased LV cavity , 6cm Osteoporosis COPD History of right renal cancer with right nephrectomy 08/30 Dyslipidemia Obesity Carotid stenosis Left ICA 50-70% Hypothyroidism History of TIA Polyarthritis Noncompliance with diet, lifestyle and medications and followup. Dependent leg edema History of acute pancreatitis secondary to gallstones for which she had a cholecystectomy in 04/04. Had to have an ERCP Refused colonoscopy and mammogram since she has been our patient PAST SURGICAL HISTORY: Cholecystectomy 04/04 Right nephrectomy 08/30 at [place] Left Humerus fracture about 30 years ago. REVIEW OF SYSTEMS: CONSTITUTIONAL: No night sweats. No fatigue, malaise, lethargy. No fever or chills. HEENT: Eyes: No visual changes. No eye pain. No eye discharge. ENT: No runny nose. No epistaxis. No sinus pain. No sore throat. No odynophagia. No ear pain. No congestion. RESPIRATORY: Cough, no congestion. No hemoptysis. Shortness of breath. Wheezing. CARDIOVASCULAR: No angina symptoms. No CHF symptoms. No atypical chest pain for CAD. No palpitations. No PND. No orthopnea. GASTROINTESTINAL: No abdominal pain. No nausea or vomiting. No diarrhea or constipation. No hematemesis. No hematochezia. GENITOURINARY: No urgency. No frequency. No dysuria. No hematuria. No obstructive symptoms. No discharge. No pain. No significant abnormal bleeding. MUSCULOSKELETAL: No musculoskeletal pain. No joint swelling. No arthritis. NEUROLOGICAL: No headache. No neck pain. No syncope. No seizures. No dizziness. PSYCHIATRIC: Not anxious. No depression. No suicidal thoughts. No homicidal thoughts. SKIN: No rash. No lesions. No wounds. ENDOCRINE: No unexplained weight loss. No weight gain. HEMATOLOGIC/LYMPHATIC: No anemia. No purpura. No petechiae. No prolonged or excessive bleeding. No palpable lymph nodes. PERSONAL/FAMILY/SOCIAL HISTORY: CVA and heart disease. She lives at home with her daughter. She is heavy smoker. She is . No alcohol or illicit drug use. MEDICATIONS: Lisinopril 40mg PO daily Norvasc 5mg PO bedtime Coreg 25mg PO BID Lovastatin 40mg PO bedtime Aspirin 81mg PO daily Levothyroxine 100mcg PO daily Tricor 145mg PO daily ALLERGIES: No known allergies PHYSICAL EXAMINATION: VITAL SIGNS: Temperature 97.1, heart rate 85, respiratory rate 24, blood pressure 212/85 and pulse ox 82% on room air. HEENT: Head normocephalic, atraumatic. Eyes: Extraocular muscles are intact. Pupils are equal, round and reactive to light and accommodation. Ears: No lesions. Nose appeared normal. Throat: No exudate or erythema. NECK: Supple. No JVD, no carotid bruit. No lymphadenopathy or thyromegaly. LUNGS: Severely diminished breath sounds with bilateral inspiratory and expiratory wheezing. Clear to auscultation. Percussion note normal. Chest symmetrical. HEART: S1, S2, no S3. No murmur. No cyanosis or clubbing. No ascites. Pulses: Dorsalis pedis and posterior tibial pulses +1 to +2 bilaterally. ABDOMEN: Soft. Nontender. Bowel sounds active. No CVA tenderness. No mass felt. EXTREMITIES: Trace leg edema. Full range of motion of all extremities, equal. NEUROLOGIC: No focal deficit. Cranial nerves II through XII are grossly intact. No headache, no double vision or headache. SKIN: Not dry. Intact. Turgor - normal. LYMPHATIC: No palpable lymph nodes/no lymphedema. MUSCULOSKELETAL: Normal joints with no swelling. Muscle tone is normal. LABS: WBc 9.36, hgb 13.4, hct 41.6, plt count 187, sodium 142, potassium 3.9, BUN 33, creatinine 0.95, glucose 131, INR 1.0. AST 28, ALT 15, Troponin less than 0.012, protein 7.2. Procalcitonin 0.10, ferritin 496. Positive for Rhino enterovirus. Negative for COVID. Initial ABG on room air showed O2 71, pH 7.29, pCO2 73, pO2 42. D-dimer 653. Urine 3+ protein, 1+ blood, nitrate positive. Placed on Vapotherm 28% repeat ABG showed O2 83, pH 7.36, pCO2 58, pO2 50 which is an improvement. Chest x-ray shows bibasilar pneumonia. ASSESSMENT: 1. Acute respiratory failure with hypoxia and hypercapnia 2. Bilateral pneumonia 3. Hypertension PLAN: 1. We will admit 2. Routine telemetry orders 3. CBC and CMP daily 4. Start Rocephin 1 gram IV daily 5. Doxycycline 100mg IV Q 12 hours 6. Solu-Cortef 125mg IV Q 6 hours. 7. The patient is on Vapotherm will be titrated up until oxygen saturation mid 90's. 8. Repeat ABG in 2 hours 9. Normal saline IV at 75cc an hour times one bag 10.Regular diet 11.Sliding scale for insulin 12.Continue all home medications 13.DUO NEBS TID Scheduled 14.Pulmicort NEB 1mg BID 15.The patient is a DNR 16.Zofran 4mg IV Q 6 hours PRN 17.Sputum culture 18.Urine culture 19.Blood culture times 2 We will follow very closely CONDITION: Critical TIME SPENT: More than 70 minutes. MTDD
[2021-04-02] MEDS: DOXY-100 100 MG in SODIUM CHLORIDE 100ML 100 ML IV SCH ×2 (10:55→20:57)
[2021-04-02 13:55] LABS: ABG O2 HGB 95.2 % (95-100); ABG PH 7.42 (7.35-7.45); BEecf 4.7 (-2.0-3.0); HCO3 29.2 (21-28); MetHb 0 (0-1.5); TCO2 30.6 (19-24); sO2 96.7 % (94-98); tHb 12.3 g/dl (11.7-17.4)
[2021-04-02] MEDS: MEVACOR PO SCH (16:28)
[2021-04-03] MEDS: PULMICORT 1 MG/2 ML NEB SCH ×2 (04:45→19:25)
[2021-04-03] MEDS: DUONEB NEB SCH ×3 (04:45→19:25)
[2021-04-03 05:36] LABS: HEMATOCRIT 39.6 % (37.0-47.0); HEMOGLOBIN 12.9 g/dl (12.0-16.0); IMMATURE GRANULOCYTE # (AUTO) 0.1 (0.0-1.0); IMMATURE GRANULOCYTE % (AUTO) 0.5 % (0.0-5.0); LYMPHOCYTES # (AUTO) 0.8 K/uL (0.60-3.4); LYMPHOCYTES % (AUTO) 8.8 (10.0-50.0); MEAN CORPUSCULAR HEMOGLOBIN 32.5 pg (27.0-31.0); MEAN CORPUSCULAR HGB CONC 32.6 (31.8-35.4); MEAN CORPUSCULAR VOLUME 99.7 fl (81.0-99.0); MONOCYTES # (AUTO) 0.1 K/uL (0.4-2.0); MONOCYTES % (AUTO) 1.5 (0-10); NEUTROPHILS # (AUTO) 8.3 K/ul (2.0-6.9); NEUTROPHILS % (AUTO) 89.2 % (42.2-75.2); PLATELET COUNT 181 10^3/uL (140-440); RDW COEFFICIENT OF VARIATION 12.7 % (11.6-14.8); RED BLOOD COUNT 3.97 10^6/ul (4.20-5.40); WHITE BLOOD COUNT 9.27 K/ul (4.6-10.2)
[2021-04-03] MEDS: SOLU-MEDROL 125 MG IVP SCH ×2 (05:53→13:07)
[2021-04-03] MEDS: SYNTHROID PO SCH (05:58)
[2021-04-03 06:13] LABS: ALBUMIN 3.5 g/dL (3.5-5.0); BILIRUBIN,TOTAL 0.6 mg/dL (0.2-1.3); CALCIUM 9.9 mg/dL (8.4-10.2); CREATININE 0.9 mg/dL (0.60-1.30); POTASSIUM 3.9 mmol/L (3.5-5.1); TOTAL PROTEIN 6.5 g/dL (6.3-8.2)
[2021-04-03] MEDS: HUMULIN R SUBCUT PRN ×4 (06:34→20:41)
[2021-04-03] MEDS: DOXY-100 100 MG in SODIUM CHLORIDE 100ML 100 ML IV SCH ×2 (09:56→20:42)
[2021-04-03] MEDS: ASPIRIN EC PO SCH (09:56)
[2021-04-03] MEDS: COREG PO SCH ×2 (09:57→16:53)
[2021-04-03] MEDS: ZESTRIL PO SCH (09:57)
[2021-04-03] MEDS: TRIGLIDE PO SCH (09:57)
[2021-04-03] MEDS: NORVASC PO SCH ×2 (09:57→20:40)
[2021-04-03] MEDS: ROCEPHIN 1 GM/50 ML D5W 1 GM/50 ML BAG IV SCH (12:23)
[2021-04-03] MEDS ORDERED: MILK OF MAGNESIA PO ONE (13:35)
[2021-04-03] MEDS: MEVACOR PO SCH (16:53)
[2021-04-04] MEDS ORDERED: KEFLEX PO SCH (05:00)
[2021-04-04] MEDS: PULMICORT 1 MG/2 ML NEB SCH (05:00)
[2021-04-04] MEDS: DUONEB NEB SCH (05:00)
[2021-04-04 05:36] VITALS: BP 163/74; TEMP 98.5
[2021-04-04] MEDS: SYNTHROID PO SCH (06:21)
[2021-04-04] MEDS: HUMULIN R SUBCUT PRN (06:41)
[2021-04-04] MEDS ORDERED: PREDNISONE PO SCH (08:30)
[2021-04-04] MEDS: ZESTRIL PO SCH (09:24)
[2021-04-04] MEDS: NORVASC PO SCH (09:24)
[2021-04-04] MEDS: ASPIRIN EC PO SCH (09:24)
[2021-04-04] MEDS: DOXY-100 100 MG in SODIUM CHLORIDE 100ML 100 ML IV SCH (09:24)
[2021-04-04] MEDS: TRIGLIDE PO SCH (09:24)
[2021-04-04] MEDS: COREG PO SCH (09:24)
--- NOTE | 2021-04-06 09:04 | ECHO2D ---
Date of Exam: 04/04/2021 Ordering Physician: DR. SHARON REINOSO Room #: 103 Reason for Echo: SOB, COPD M-Mode Normal Adult Results LV Dimensions Normal Adult Results AoV Opening excursions >1.6 1.4 LVEDD-base- 3.5-5.8 5.2 Ao root dimensions 2.0-3.7 3.0 LVESD-base- 3.1-4.6 L. Atrium dimensions 1.9-3.8 4.5 Post. Wall thickness 0.8-1.1 1.2 IV septum (thickness) 0.7-1.2 1.3 Post. Wall excursion 0.72-1.3 NORMAL Septal motion NORMAL Systolic motion R. Ventricular cavity 1.5-2.0 NORMAL LVEF 60% 63% Paradoxical septal wall motion NORMAL 2-D : ENLARGED LEFT ATRIAL CAVITY--NORMAL LEFT VENTRICLE CONTRACTILITY-CALCIFIC AORTIC VALVES--MILD PERICARDIAL EFFUSION, NO THROMBUS M-MODE: MV: CALCIFIC MITRAL VALVE ANNULUS AV: CALCIFIC AORTIC VALVES TV: NORMAL PV: NORMAL CHAMBER SIZE: ENLARGED LEFT ATRIAL CAVITY WALL MOTION: NORMAL PERICARDIUM: MILD PERICARDIAL EFFUSION INTERPRETATION: 1. CALCIFIC MITRAL VALVE ANNULUS 2. CALCIFIC AORTIC VALVES 3. ENLARGED LEFT ATRIAL CAVITY 4. LEFT VENTRICLE HYPERTROPHY 5. NORMAL LEFT VENTRICLE CONTRACTILITY MTDD
--- NOTE | 2021-04-06 14:02 | PN ---
DATE OF SERVICE: 04/01/2021 SUBJECTIVE: The patient was seen and examined in the emergency room. The patient does seem to be in distress. The blood gasses on admission with pO2 of 42,high pCO2 with pH 7.29 showed a chronic decompensated respiratory acidosis. She was put on 2 liters high flow oxygen and now the pO2 is more than 50 with saturation of 90% with improvement in the pH. The patient does not want intubation or respirator. The patient doesn't have any symptoms of coronary insufficiency or CHF. Non- compliant of medications also has a very poor living conditions and is going to be hospitalized with respiratory failure with CO2 retention. There is CO2 retention even in the old blood gasses. Continue to give the patient NEBS, steroids and antibiotics. CONDITION: Stable for now. PROGNOSIS: Guarded. TIME SPENT: More than 30 minutes. Plan and coordination of the patient's care discussed in the presence of nurse. ANGELICA
--- NOTE | 2021-04-06 14:30 | PN ---
DATE OF SERVICE: 04/03/2021 SUBJECTIVE: 80 year old white female hospitalized with pneumonia, hypoxemia with CO2 retention. The patient's condition has improved remarkably. She is feeling a lot better and wants to go home. This morning she looked very comfortable. We will try to discontinue Rocephin and put her Keflex. Also discontinue the IV Solu- Cortef and put her on Prednisone. Problem is that there is no body to take care of her. The daughter who takes care of her has fracture of hand. The patient is DNR. REVIEW OF SYSTEMS: CONSTITUTIONAL: No night sweats. No fatigue, malaise, lethargy. No fever or chills. HEENT: Eyes: No visual changes. No eye pain. No eye discharge. ENT: No runny nose. No epistaxis. No sinus pain. No sore throat. No odynophagia. No congestion. RESPIRATORY: No cough, no congestion. No hemoptysis. No shortness of breath. CARDIOVASCULAR: No angina symptoms. No CHF symptoms. No atypical chest pain for CAD. No palpitations. No PND. No orthopnea. GASTROINTESTINAL: No abdominal pain. No nausea or vomiting. No diarrhea or constipation. No hematemesis. No hematochezia. GENITOURINARY: No urgency. No frequency. No dysuria. No hematuria. No obstructive symptoms. No discharge. No pain. No significant abnormal bleeding. MUSCULOSKELETAL: No musculoskeletal pain; no joint swelling. NEUROLOGICAL: No headache. No neck pain. No syncope. No seizures. No dizziness. PSYCHIATRIC: Not anxious. No depression. No suicidal thoughts. No homicidal thoughts. SKIN: No rash. No lesions. No wounds. ENDOCRINE: No unexplained weight loss. No weight gain. HEMATOLOGIC/LYMPHATIC: No anemia. No purpura. No petechiae. No prolonged or excessive bleeding. No palpable lymph nodes. PHYSICAL EXAMINATION: VITAL SIGNS: Temperature 97.6, pulse 66, respiratory rate rate 16 and blood pressure 160/80 and pulse ox 96%. HEENT: Head normocephalic, atraumatic. Eyes: Extraocular muscles are intact. Pupils are equal, round and reactive to light and accommodation. Ears: No lesions. Nose appeared normal. Throat: No exudate or erythema. NECK: Supple. No JVD, no carotid bruit. No lymphadenopathy or thyromegaly. LUNGS: Decreased breath sounds but clear to auscultation. Percussion note normal. Chest symmetrical. HEART: S1, S2, no S3. No murmurs. No cyanosis or clubbing. No ascites. Pulses: Dorsalis pedis and posterior tibial pulses +1 to +2 bilaterally. ABDOMEN: Soft. Nontender. Bowel sounds active. No CVA tenderness. No mass felt. EXTREMITIES: No edema. Full range of motion of all extremities, equal. NEUROLOGIC: No focal deficit. Cranial nerves II through XII are grossly intact. No headache. No double vision. SKIN: Not dry. Intact. Turgor - normal. LYMPHATIC: No palpable lymph nodes/no lymphedema. MUSCULOSKELETAL: Normal joints with no swelling. Muscle tone is normal. ASSESSMENT: 1. Respiratory failure seems to be under control. The patient has chronic respiratory failure with CO2 retention PLAN: 1. Discharge the patient tomorrow 2. Advised her to be on low flow oxygen 3. The patient to be continued on Keflex and Prednisone. 4. Continue NEBS treatment at home 5. Prognosis guarded considering the patient's condition at home and with nobody to help her. She is noncompliant of medications because she is not able to manage it. 6. Echocardiogram before discharge TIME SPENT: More than 30 minutes. Plan and coordination of the patient's care discussed in the presence of nurse. ANGELICA
--- NOTE | 2021-04-06 14:43 | PN ---
DATE OF SERVICE: 04/04/21 SUBJECTIVE: 80 year old white female hospitalized with respiratory failure and pneumonia, hypoxemia. The patient's condition has improved. The patient had rhinovirus and feeling a lot better, wants to go home. Her oxygen saturation is 93% on 2 liters. This patient has CO2 retention. She is heavy smoker. Counseling for smoking done. REVIEW OF SYSTEMS: CONSTITUTIONAL: No night sweats. No fatigue, malaise, lethargy. No fever or chills. HEENT: Eyes: No visual changes. No eye pain. No eye discharge. ENT: No runny nose. No epistaxis. No sinus pain. No sore throat. No odynophagia. No congestion. RESPIRATORY: No cough, no congestion. No hemoptysis. No shortness of breath. CARDIOVASCULAR: No angina symptoms. No CHF symptoms. No atypical chest pain for CAD. No palpitations. No PND. No orthopnea. GASTROINTESTINAL: No abdominal pain. No nausea or vomiting. No diarrhea or constipation. No hematemesis. No hematochezia. GENITOURINARY: No urgency. No frequency. No dysuria. No hematuria. No obstructive symptoms. No discharge. No pain. No significant abnormal bleeding. MUSCULOSKELETAL: No musculoskeletal pain; no joint swelling. NEUROLOGICAL: No headache. No neck pain. No syncope. No seizures. No dizziness. PSYCHIATRIC: Not anxious. No depression. No suicidal thoughts. No homicidal thoughts. SKIN: No rash. No lesions. No wounds. ENDOCRINE: No unexplained weight loss. No weight gain. HEMATOLOGIC/LYMPHATIC: No anemia. No purpura. No petechiae. No prolonged or excessive bleeding. No palpable lymph nodes. PHYSICAL EXAMINATION: VITAL SIGNS: temperature 98.5, pulse 60, respiratory rate 18, blood pressure 160/74 and pulse ox 93% on 1 liter. HEENT: Head normocephalic, atraumatic. Eyes: Extraocular muscles are intact. Pupils are equal, round and reactive to light and accommodation. Ears: No lesions. Nose appeared normal. Throat: No exudate or erythema. NECK: Supple. No JVD, no carotid bruit. No lymphadenopathy or thyromegaly. LUNGS: Decreased breath sounds. Clear to auscultation. Percussion note normal. Chest symmetrical. HEART: S1, S2, no S3. No murmurs. No cyanosis or clubbing. No ascites. Pulses: Dorsalis pedis and posterior tibial pulses +1 to +2 bilaterally. ABDOMEN: Soft. Nontender. Bowel sounds active. No CVA tenderness. No mass felt. EXTREMITIES: No edema. Full range of motion of all extremities, equal. NEUROLOGIC: No focal deficit. Cranial nerves II through XII are grossly intact. No headache. No double vision. SKIN: Not dry. Intact. Turgor - normal. LYMPHATIC: No palpable lymph nodes/no lymphedema. MUSCULOSKELETAL: Normal joints with no swelling. Muscle tone is normal. LABS: Hgb 12.9, hct 39, WBC 9,200 normal differential, creatinine 0.9, BUN 38, potassium 3.9. Recent ABG pO2 86, pCO2 45, pH 7.42 with 96% saturation on 2 liters. The patient had an echo done today that showed normal LV contractility with mild pericardial effusion and calcification of the mitral valve annulus. ASSESSMENT: 1. Respiratory failure resolved 2. CO2 retention resolved 3. Hypertension 4. Diabetes Mellitus 5. Dyslipidemia PLAN: 1. Discharge the patient home on Amlodipine 5mg BID because of hypertension, Systolic more than 150 2. Keflex and Prednisone for 5 days 3. The patient was given Phenergan with codeine, she wanted some cough medicine CONDITION: Stable on discharge TIME SPENT: More than 30 minutes. Plan and coordination of the patient's care discussed in the presence of nurse. ANGELICA
--- NOTE | 2021-04-12 14:30 | DS ---
DATE OF SERVICE: 04/04/2021 FINAL DIAGNOSIS: 1. Acute respiratory failure 2. Severe chronic lung disease, continued smoking 3. Noncompliance of all aspects of medical care 4. Kidney disease stage III 5. LVH 6. Hypertension 7. Enlarged LV cavity 8. Osteoporosis 9. Dyslipidemia 10.History of TIA 11.Hypothyroidism 12.Right nephrectomy, malignant neoplasm right kidney by Dr. Merchant at [facility] 08/30 13.Chronic lung disease 14.Carotid stenosis 5-70% on the left internal carotid artery DISCHARGE INSTRUCTIONS: Discharge home today. Continued medications as listed per nursing reconciliation. Call the office on Monday to schedule a followup with Dr. Triplett. MEDICATIONS AT DISCHARGE: Norvasc 5mg BID Lisinopril 40mg PO daily Coreg 25mg PO BID Lovastatin 40mg PO bedtime Aspirin 81mg PO daily Levothyroxine 100mcg PO daily Tricor 145mg PO daily NEW PRESCRIPTIONS: Keflex 500mg TID for 5 days then stop Prednisone 10mg BID for 5 days then stop Phenergan with codeine for cough DIET INSTRUCTIONS: Regular ACTIVITY: Gradually resume activity as tolerated SMOKING: Education carried out HOSPITAL COURSE: 80 year old white female was hospitalized because of shortness of breath, cough and congestion. The patient was COVID negative. The patient's arterial blood gasses in ther emergency room showed pH 7.36 with pO2 50 with pCO2 58 with 85% oxygen saturation. The patient was treated with IV steroids, NEBS and antibiotics. On following day on 04/02/2021 her pH 7.42 with pO2 86 with pCO2 45 and had saturation of 96% on 2 liters. She improved remarkably. Echo that was repeated on the day of discharged showed normal LV size, normal LA cavity, normal LV contractility. She was put on antibiotics, Keflex and Prednisone. Her Amlodipine dose was doubled 5mg twice a day because of hypertensive. Continue on the rest of the medications. The patient was given Phenergan with codeine because of cough. She is strongly advised to quit smoking. Also advised to take her medication on a regular basis CONDITION: Stable. TIME SPENT: More than 60 minutes. MTDD
--- NOTE | 2021-04-12 14:31 | PN ---
04/01/2021: Level 5 04/02/2021: Intermediate 04/03/2021: Intermediate 04/04/2021: D as in discharge MTDD
== END 2021-04-04 12:11 | disposition home or self-care (01) | DRG 189 ==
LOC: ED 07:50 → MEDSURG A 10:46
PROVIDERS: ADMIT Internal Medicine; ATTEND Internal Medicine
DX: Z20.822 Contact with and (suspected) exposure to COVID-19; I51.7 Cardiomegaly; J96.00 Acute respiratory failure, unspecified whether with hypoxia or hypercapnia; I65.29 Occlusion and stenosis of unspecified carotid artery; N18.30 Chronic kidney disease, stage 3 unspecified; Z90.5 Acquired absence of kidney; E78.5 Hyperlipidemia, unspecified; J44.9 Chronic obstructive pulmonary disease, unspecified; E03.9 Hypothyroidism, unspecified; Z72.0 Tobacco use; Z85.528 Personal history of other malignant neoplasm of kidney; I10 Essential (primary) hypertension

== ENCOUNTER 2021-08-28 22:29 | Inpatient (IN) ==
--- NOTE | 2021-08-28 22:32 | ED.PDOC ---
General ED Provider: Dr. LEE SMITH Chief Complaint: Weakness Stated Complaint: not feeling well all day / didnt take any of her meds / hasnt eaten / was in chair and couldnt get up and called for ems lift assist and found to be hypotensive. Daughter said she complained of feeling cold all day / admitted in Dec for pneumonia Time Seen by Provider: 08/28/21 22:31 Mode of Arrival: Ambulance Information Source: Patient, Family and EMT Exam Limitations: No limitations Primary Care Provider: SHARON TRIPLETT Nursing and Triage Documentation Reviewed and Agree: Yes Does patient meet sepsis criteria?: No If yes, has appropriate treatment been initiated?: Yes System Inflammatory Response Syndrome: Temp 101F or Greater, Temp 96.8F or Lower, Pulse >90 BPM, Resp >20/Minute and Acutely Altered Mental Status Sepsis Protocol: For patient's 13 years and over: Temp is 96.8 and below OR 101 and greater Pulse >90 BPM Resp >20/minute Acutely Altered Mental Status Are patient's symptoms suggestive of a new infection, such as: -Pneumonia -Skin, Soft Tissue -Endocarditis -UTI -Bone, Joint Infection -Implantable Device -Acute Abdominal Infection -Wound Infection -Meningitis -Blood Stream Catheter Infection -Unknown Review of Systems Review Of Systems Constitutional: Reports Chills and Weakness Eyes: Reports No symptoms Ears, Nose, Mouth, Throat: Reports No symptoms Respiratory: Reports No symptoms Cardiac: Reports No symptoms GI: Reports No symptoms : Reports No symptoms Musculoskeletal: Reports No symptoms Skin: Reports No symptoms Neurological: Reports No symptoms Endocrine: Reports No symptoms Hematologic/Lymphatic: Reports No symptoms All Other Systems: Reviewed and Negative [facility] Medical History COPD (chronic obstructive pulmonary disease) Dyslipidemia HTN (hypertension) Renal mass, right Family History Mother Hypertension FATHER Hypertension Social History Smoking and tobacco status: Current every day smoker Surgical History H/O right nephrectomy Hx of cholecystectomy Female Reproductive History Menstrual Age of Menarche: 14 Hx Hysterectomy: No Hx Tubal Ligation: No Date of menopause: 03/17/1955 Hx Now: No Physical Exam Physical Exam Appearance: Reports Ill-appearing and No pain distress; Denies [place] Ill-appearing: Mild Pain Distress: None Eyes: Reports Other (sclera may be jaundiced ) ENT: Reports Ears normal, Nose normal and Oropharynx normal Neck: Supple Respiratory: Reports Airway patent, Breath sounds clear and Breath sounds equal Cardiovascular: Reports RRR, Pulses normal and Murmur (1-2/6 pulmonary area ) GI/: Reports Soft and Nontender Musculoskeletal: Reports ROM intact, Limited strength and Edema Skin: Reports Warm, Dry, Pale and Other Neurological: Reports Sensation intact, Motor intact, Reflexes intact, Alert and Oriented Psychiatric: Reports Affect appropriate Interpretation Radiology Interpretation Radiology Interpretation By: Radiologist (pos rll infiltrate ) Radiology Results: Positive Exam Interpreted: Portable CXR and CT Scan Xray Comments: cardiomegaly / neg abdom w/o EKG Interpretation Time of EKG #1: 22:50 Rate: Normal Rhythm: Sinus Ectopy: None [place]: Left ST Segment: Normal Interpretation: nsr Re-Evaluation Re-Evaluation Status: Improved Vital Signs Stable: Yes Pain Level: o Appearance: NAD Skin: Warm and Dry Neuro: Alert and Oriented X3 CV: RRR Additional Comments: map 75 Physician Notification Case Discussed Physician Notified: Dr Triplett Time of Notification: 01:20 Comments: Admit / IVF 75 / DNR Critical Care Note Critical Care Note Total Critical Care Time (mins): 20 Comments: eval for sepsis / interview daughter / chart review / labs / imaging / fluids / abx ( sepsis protocol ) reassess pt / discuss with PMD /recheck lactate Course Course Hematology/Chemistry: 09/01/21 04:42 09/01/21 04:42 Orders, Labs, Meds: Lab Review 08/28/21 08/28/21 08/28/21 00:00 23:00 23:00 WBC 13.68 H RBC 3.33 L Hgb 11.0 L Hct 33.4 L MCV 100.3 H MCH 33.0 H MCHC 32.9 RDW Coeff of Ashley 14.0 Plt Count 161 Immature Gran % (Auto) 0.3 Neut % (Auto) 90.4 H Lymph % (Auto) 2.8 L [place] % (Auto) 6.4 Eos % (Auto) 0.0 Baso % (Auto) 0.1 Neut # (Auto) 12.4 H Lymph # (Auto) 0.4 L [place] # (Auto) 0.9 Eos # (Auto) 0.0 Baso # (Auto) 0.0 Immature Gran # (Auto) 0.0 Sodium 137.2 Potassium 3.81 Chloride 108.0 H Carbon Dioxide 20.1 L Anion Gap 12.91 BUN 23.1 H Creatinine 1.10 Estimated GFR (MDRD) 48.00 BUN/Creatinine Ratio 21.00 Glucose 108.4 H Lactic Acid Calcium 9.14 Total Bilirubin 3.41 H AST 391.8 H ALT 80.7 H Alkaline Phosphatase 88.0 Troponin I < 0.012 NT-Pro-B Natriuret Pep 1220.000 H Total Protein 5.17 L Albumin 2.97 L Globulin 2.20 Albumin/Globulin Ratio 1.35 Lipase Procalcitonin TSH 4.750 H Urine Color Urine Clarity Urine pH Ur Specific [place] Urine Protein Urine Glucose (UA) Urine Ketones Urine Blood Urine Nitrite Urine Bilirubin Urine Urobilinogen Ur Leukocyte Esterase Urine Microscopic WBC Ur Squamous Epith Cells Urine Bacteria Urine Mucus Adenovirus (PCR) Not detected B. pertussis DNA (PCR) Not detected B.parapertussis DNA PCR Not detected C. pneumoniae DNA (PCR) Not detected Coronavirus OC43 (PCR) Not detected Coronavirus HKU1 (PCR) Not detected Coronavirus 229E (PCR) Not detected Coronavirus NL63 (PCR) Not detected Human Metapneumovir PCR Not detected Influenza Type A (PCR) Not detected Influenza B (RT-PCR) Not detected M. pneumoniae (PCR) Not detected Parainfluenza 1 (PCR) Not detected Parainfluenza 2 (PCR) Not detected Parainfluenza 3 (PCR) Not detected Parainfluenza 4 (PCR) Not detected RSV (PCR) Not detected Entero/Rhino (PCR) Not detected SARS-CoV-2 (PCR) Not detected 08/28/21 08/28/21 08/28/21 23:00 23:00 23:00 WBC RBC Hgb Hct MCV MCH MCHC RDW Coeff of Ashley Plt Count Immature Gran % (Auto) Neut % (Auto) Lymph % (Auto) [place] % (Auto) Eos % (Auto) Baso % (Auto) Neut # (Auto) Lymph # (Auto) [place] # (Auto) Eos # (Auto) Baso # (Auto) Immature Gran # (Auto) Sodium Potassium Chloride Carbon Dioxide Anion Gap BUN Creatinine Estimated GFR (MDRD) BUN/Creatinine Ratio Glucose Lactic Acid 2.04 Calcium Total Bilirubin AST ALT Alkaline Phosphatase Troponin I NT-Pro-B Natriuret Pep Total Protein Albumin Globulin Albumin/Globulin Ratio Lipase Procalcitonin 27.30 H TSH Urine Color Dark Urine Clarity Slightly Urine pH 7.0 Ur Specific [place] 1.020 Urine Protein 1+ H Urine Glucose (UA) Negative Urine Ketones Trace H Urine Blood Negative Urine Nitrite Negative Urine Bilirubin 2+ H Urine Urobilinogen >=8.0 Ur Leukocyte Esterase Trace H Urine Microscopic WBC 30-50 Ur Squamous Epith Cells 10-20 Urine Bacteria 4+ Urine Mucus 2+ Adenovirus (PCR) B. pertussis DNA (PCR) B.parapertussis DNA PCR C. pneumoniae DNA (PCR) Coronavirus OC43 (PCR) Coronavirus HKU1 (PCR) Coronavirus 229E (PCR) Coronavirus NL63 (PCR) Human Metapneumovir PCR Influenza Type A (PCR) Influenza B (RT-PCR) M. pneumoniae (PCR) Parainfluenza 1 (PCR) Parainfluenza 2 (PCR) Parainfluenza 3 (PCR) Parainfluenza 4 (PCR) RSV (PCR) Entero/Rhino (PCR) SARS-CoV-2 (PCR) 08/28/21 23:00 WBC RBC Hgb Hct MCV MCH MCHC RDW Coeff of Ashley Plt Count Immature Gran % (Auto) Neut % (Auto) Lymph % (Auto) [place] % (Auto) Eos % (Auto) Baso % (Auto) Neut # (Auto) Lymph # (Auto) [place] # (Auto) Eos # (Auto) Baso # (Auto) Immature Gran # (Auto) Sodium Potassium Chloride Carbon Dioxide Anion Gap BUN Creatinine Estimated GFR (MDRD) BUN/Creatinine Ratio Glucose Lactic Acid Calcium Total Bilirubin AST ALT Alkaline Phosphatase Troponin I NT-Pro-B Natriuret Pep Total Protein Albumin Globulin Albumin/Globulin Ratio Lipase 43.2 Procalcitonin TSH Urine Color Urine Clarity Urine pH Ur Specific [place] Urine Protein Urine Glucose (UA) Urine Ketones Urine Blood Urine Nitrite Urine Bilirubin Urine Urobilinogen Ur Leukocyte Esterase Urine Microscopic WBC Ur Squamous Epith Cells Urine Bacteria Urine Mucus Adenovirus (PCR) B. pertussis DNA (PCR) B.parapertussis DNA PCR C. pneumoniae DNA (PCR) Coronavirus OC43 (PCR) Coronavirus HKU1 (PCR) Coronavirus 229E (PCR) Coronavirus NL63 (PCR) Human Metapneumovir PCR Influenza Type A (PCR) Influenza B (RT-PCR) M. pneumoniae (PCR) Parainfluenza 1 (PCR) Parainfluenza 2 (PCR) Parainfluenza 3 (PCR) Parainfluenza 4 (PCR) RSV (PCR) Entero/Rhino (PCR) SARS-CoV-2 (PCR) Orders Category Date Time Status ADMIT PATIENT INPATIENT .TO MEDSURG (MONITORED BED) ADMISSION 08/29/21 01:50 Completed EKG-(ED ONLY) Stat CARDIO 08/28/21 22:32 Completed OXYGEN Routine CARDIO 08/29/21 01:55 Completed ACTIVITY .Complete BR CARE 08/29/21 01:50 Completed INTAKE & OUTPUT Q8HR CARE 08/29/21 01:50 Completed TELEMETRY MONITORING TELE CARE 08/29/21 01:51 Completed VITAL SIGNS Q8HR CARE 08/29/21 01:54 Completed REGULAR DIET DIETARY 08/29/21 Breakfast Completed [place] [ED CATHETER INSERTION AND CARE] .ONCE EMERGENCY 08/28/21 22:51 Completed Monitor [ED CATH LAB TECH APPLIED] .ONCE EMERGENCY 08/28/21 22:35 Completed BLOOD CULTURE (ED ONLY) Stat LAB 08/28/21 23:00 Completed CBC W/ AUTO DIFF Stat LAB 08/28/21 23:00 Completed CMP [COMPREHENSIVE METABOLIC PANEL] Stat LAB 08/28/21 23:00 Completed LACTIC ACID Stat LAB 08/28/21 23:00 Completed LIPASE Stat LAB 08/28/21 23:00 Completed NT-PROBNP Stat LAB 08/28/21 23:00 Completed PROCALCITONIN Stat LAB 08/28/21 23:00 Completed RESPIRATORY PANEL 2.1 (PCR) Stat LAB 08/28/21 00:00 Completed THYROID STIMULATING HORMONE Stat LAB 08/28/21 23:00 Completed TROPONIN I Stat LAB 08/28/21 23:00 Completed URINALYSIS C & S IF INDICATED Stat LAB 08/28/21 23:00 Completed URINE CULTURE Stat LAB 08/28/21 23:00 Completed Lidocaine (Uro-Jet) [Uro-Jet] MEDS 08/28/21 22:51 Discontinued 10 ml MUCOUSMEMB ONCE STA Piperacillin Sodium/Tazobactam [Zosyn 4.5 gm] 4.5 gm MEDS 08/28/21 22:48 Discontinued 0.9 % Sodium Chloride [Sodium Chloride 100Ml] 100 ml IV ONCE RESUSCITATION STATUS Routine OTHERS 08/29/21 01:[address] ABDOMEN/PELVIS WO CONTRAST Stat RADS 08/29/21 23:50 Completed CXR [CHEST, 1V AP ONLY] Stat RADS 08/28/21 22:32 Completed Medications Discontinued Medications Generic Name Dose Route Start Last Admin Trade Name Freq PRN Reason Stop Dose Admin Enoxaparin Sodium 40 mg 08/29/21 09:00 08/29/21 08:38 Enoxaparin Sodium 40 Mg/0.4 Ml Syr SUBCUT 40 mg DAILY ABA Administration Fenofibrate 160 mg 08/29/21 17:00 Fenofibrate 160 Mg Tablet PO DAILY ABA Gabapentin 100 mg 09/01/21 21:00 Gabapentin 100 Mg Capsule PO 2100 BAA Piperacillin Sod/Tazobactam 100 mls @ 100 mls/hr 08/28/21 22:48 08/28/21 23:24 Sod 4.5 gm/ Sodium Chloride IV 08/28/21 23:47 100 mls/hr ONCE STA Administration Sodium Chloride 1,000 mls @ 1,000 mls/hr 08/29/21 02:13 08/29/21 02:26 Sodium Chloride IV 08/29/21 03:12 1,000 mls/hr ONCE ONE Administration Sodium Chloride 1,000 mls @ 75 mls/hr 08/29/21 02:00 08/31/21 06:24 Sodium Chloride IV Not Given .[id number] ABA Piperacillin Sod/Tazobactam 100 mls @ 100 mls/hr 08/29/21 14:00 09/01/21 05:44 Sod 4.5 gm/ Sodium Chloride IV 09/01/21 13:59 100 mls/hr Q6HR ABA Administration Sodium Chloride 1,000 mls @ 50 mls/hr 08/30/21 08:16 08/31/21 09:36 Sodium Chloride IV Not Given .Q20H ABA CEFTRIAXONE/D5W 1 GM PREMIX 1 gm in 50 mls @ 75 mls/hr 09/01/21 11:30 09/01/21 12:05 Rocephin 1 Gm/50 Ml D5w IV 09/04/21 11:29 75 mls/hr DAILY ABA Administration Levothyroxine Sodium 100 mcg 08/29/21 07:00 09/01/21 05:44 Levothyroxine Sodium 100 Mcg Tablet PO 100 mcg QDAC ABA Administration Lidocaine HCl 10 ml 08/28/21 22:51 08/28/21 23:25 Lidocaine 10 Ml Jel.Pf.Moises (Urojet) MUCOUSMEMB 08/28/21 22:52 10 ml ONCE STA Administration Lovastatin 40 mg 08/29/21 17:00 Lovastatin 20 Mg Tablet PO QPM ABA Pantoprazole Sodium 40 mg 08/29/21 09:00 09/01/21 09:13 Pantoprazole Sodium 40 Mg Vial IVP 40 mg DAILY ABA Administration Potassium Chloride 20 meq 08/29/21 15:00 09/01/21 08:22 Potassium Chloride 20 Meq Tab PO 20 meq BIDWM ABA Administration Saccharomyces Boulardii 250 mg 08/31/21 09:00 09/01/21 08:22 Saccharomyces Boulardii 250 Mg Capsule PO 250 mg BID ABA Administration Sodium Chloride 1 syr 09/01/21 13:00 09/01/21 12:19 0.9% Sodium Chloride 10 Ml Disp.Syrin IVF 1 syr Q8HR ABA Administration Vital Signs: Temp Pulse Resp BP Pulse Ox 08/28/21 22:30 97.8 F 88 18 86/47 L 92 L MAP 70 feeling some better to ct for abd pelvis w/o to access jaundice and added lipase . Pt and daughter updated . sepsis with hypotension /UTI / elevated liver enzymes / 113/52 Discharge Plan Discharge Patient Disposition: ADMITTED INPATIENT Discharge Problem: Sepsis associated hypotension, Urinary tract infection ED Provider: LEE SMITH Condition: Fair Physician Progress Note: []
[2021-08-28] MEDS ORDERED: SODIUM CHLORIDE 500 ML IV STA (22:37)
[2021-08-28] MEDS ORDERED: ZOSYN 4.5 GM 4.5 GM in SODIUM CHLORIDE 100ML 100 ML IV STA (22:48)
[2021-08-28] MEDS ORDERED: URO-JET MUCOUSMEMB STA (22:51)
[2021-08-28 23:03] LABS: BASOPHILS % (AUTO) 0.1 % (0.0-3.0); HEMATOCRIT 33.4 % (37.0-47.0); IMMATURE GRANULOCYTE % (AUTO) 0.3 % (0.0-5.0); LYMPHOCYTES # (AUTO) 0.4 K/uL (0.60-3.4); LYMPHOCYTES % (AUTO) 2.8 (10.0-50.0); MEAN CORPUSCULAR HGB CONC 32.9 (31.8-35.4); MEAN CORPUSCULAR VOLUME 100.3 fl (81.0-99.0); MONOCYTES # (AUTO) 0.9 K/uL (0.4-2.0); MONOCYTES % (AUTO) 6.4 (0-10); NEUTROPHILS # (AUTO) 12.4 K/ul (2.0-6.9); NEUTROPHILS % (AUTO) 90.4 % (42.2-75.2); PLATELET COUNT 161 10^3/uL (140-440); RED BLOOD COUNT 3.33 10^6/ul (4.20-5.40); WHITE BLOOD COUNT 13.68 K/ul (4.6-10.2)
[2021-08-28 23:16] LABS: ALANINE AMINOTRANSFERASE 80.7 U/L (0-35); ALBUMIN 2.97 g/dL (3.5-5.0); ASPARTATE AMINO TRANSFERASE 391.8 U/L (14-36); BILIRUBIN,TOTAL 3.41 mg/dL (0.2-1.3); BLOOD UREA NITROGEN 23.1 mg/dL (7-17); CALCIUM 9.14 mg/dL (8.4-10.2); CARBON DIOXIDE 20.1 mmol/L (22-30.0); GLUCOSE 108.4 mg/dL (74-106); POTASSIUM 3.81 mmol/L (3.5-5.1); SODIUM 137.2 mmol/L (134.5-145); TOTAL PROTEIN 5.17 g/dL (6.3-8.2)
[2021-08-28 23:20] LABS: BILIRUBIN,URINE 2+ (NEGATIVE); CLARITY,URINE Slightly (CLEAR); COLOR,URINE Dark (YELLOW); GLUCOSE, URINE (UA) Negative (NEGATIVE); KETONES,URINE Trace (NEGATIVE); LEUKOCYTE ESTERASE ,URINE Trace (NEGATIVE); NITRITE,URINE Negative (NEGATIVE); PROTEIN,URINE 1+ (NEGATIVE); URINE, BLOOD Negative (NEGATIVE); UROBILINOGEN,URINE >=8.0 (0.2)
[2021-08-28 23:22] LABS: BACTERIA,URINE 4+ (NOT PRESENT); MUCUS,URINE 2+ (NOT PRESENT); URINE WBC, MICROSCOPIC 30-50 (0-2)
[2021-08-28 23:29] LABS: TROPONIN I < 0.012 ng/ml (0.0000-0.120)
--- NOTE | 2021-08-28 23:40 | DI ---
EXAM: AP chest. HISTORY: Weakness. Low blood pressure. FINDINGS: There is chronic healed fracture of the proximal left humerus. The cardiac silhouette is e nlarged. The pulmonary vasculature is within normal limits. No infiltrate or consolidation. The lyn ng apices are incompletely visualized secondary to artifact from the patient's head. Impression: Cardiomegaly.
--- NOTE | 2021-08-29 00:44 | CT ---
Exam: CT of the abdomen and pelvis without contrast History: Prior nephrectomy with hypotension Technique: [address] of the abdomen and pelvis without contrast FINDINGS: The lung bases are clear. No significant liver abnormality. Multiple pancreatic calcific ations. No peripancreatic inflammation. Biliary stent in place. Normal spleen and adrenal glands. The stomach and hiatus are unremarkable.Prior cholecystectomy. Prior right nephrectomy. Normal left kidney and collecting system. The appendix is not seen. Bowel loops demonstrate normal caliber. N o inflamatory change seen in the mesentery or retroperitoneum. Granda catheter decompresses the urinary bladder. Normal pelvic genitourinary structures otherwise. Normal pelvic bowel loops. No pelvic fat inflammation. No acute findings of the skeleton. The bone s are demineralized. Impression: 1. No inflammatory process, bowel or urinary obstruction 2. Calcifications left chronic pancreatitis. No acute pancreatitis is seen. 3. Distal biliary duct stent in place. 4. Absent right kidney All CT scans are performed using dose optimization techniques as appropriate to the performed exam an d include at least one of the following: Automated exposure control, adjustment of the mA and/or kV according t o size, and the use of iterative reconstruction technique.
[2021-08-29 01:13] LABS: ADENOVIRUS (PCR) NOT DETECTED (NOT DETECT); BORDETELLA PARAPERTUSSIS (PCR) NOT DETECTED (NOT DETECT); BORDETELLA PERTUSSIS (PCR) NOT DETECTED (NOT DETECT); CHLAMYDIA PNEUMONIAE (PCR) NOT DETECTED (NOT DETECT); CORONAVIRUS 229E (PCR) NOT DETECTED (NOT DETECT); CORONAVIRUS HKU1 (PCR) NOT DETECTED (NOT DETECT); CORONAVIRUS NL63 (PCR) NOT DETECTED (NOT DETECT); CORONAVIRUS OC43 (PCR) NOT DETECTED (NOT DETECT); HUMAN METAPNEUMOVIRUS (PCR) NOT DETECTED (NOT DETECT); HUMAN RHINOVIRUS/ENTEROV (PCR) NOT DETECTED (NOT DETECT); INFLUENZA B (PCR) NOT DETECTED (NOT DETECT); MYCOPLASMA PNEUMONIAE (PCR) NOT DETECTED (NOT DETECT); PARAINFLUENZA VIRUS 1 (PCR) NOT DETECTED (NOT DETECT); PARAINFLUENZA VIRUS 2 (PCR) NOT DETECTED (NOT DETECT); PARAINFLUENZA VIRUS 3 (PCR) NOT DETECTED (NOT DETECT); PARAINFLUENZA VIRUS 4 (PCR) NOT DETECTED (NOT DETECT); RESPIRATORY SYNCYTIAL V (PCR) NOT DETECTED (NOT DETECT); SARS_COV_2 (PCR) NOT DETECTED (NOT DETECT)
[2021-08-29] MEDS ORDERED: SODIUM CHLORIDE 1,000 ML IV ONE (02:13)
[2021-08-29 03:32] VITALS: BMI 23.2
[2021-08-29 05:31] LABS: PROTHROMBIN TIME 11.8 SEC (9.3-11.0)
[2021-08-29] MEDS: SODIUM CHLORIDE 1,000 ML IV SCH ×2 (07:10→20:37)
[2021-08-29] MEDS: SYNTHROID PO SCH (08:38)
[2021-08-29] MEDS: PROTONIX IV IVP SCH (08:56)
[2021-08-29] MEDS ORDERED: FENOFIBRATE NANOCRYSTALLIZED 145 MG PO SCH (09:00)
[2021-08-29] MEDS ORDERED: LOVENOX SUBCUT SCH (09:00)
[2021-08-29 13:57] LABS: BASOPHILS % (AUTO) 0.2 % (0.0-3.0); EOSINOPHILS % (AUTO) 0.1 % (0.0-7.0); HEMATOCRIT 29.2 % (37.0-47.0); HEMOGLOBIN 9.7 g/dl (12.0-16.0); IMMATURE GRANULOCYTE # (AUTO) 0.1 (0.0-1.0); IMMATURE GRANULOCYTE % (AUTO) 0.5 % (0.0-5.0); LYMPHOCYTES # (AUTO) 0.8 K/uL (0.60-3.4); LYMPHOCYTES % (AUTO) 4.2 (10.0-50.0); MEAN CORPUSCULAR HEMOGLOBIN 32.9 pg (27.0-31.0); MEAN CORPUSCULAR HGB CONC 33.2 (31.8-35.4); MONOCYTES % (AUTO) 4.8 (0-10); NEUTROPHILS % (AUTO) 90.2 % (42.2-75.2); PLATELET COUNT 183 10^3/uL (140-440); RDW COEFFICIENT OF VARIATION 14.2 % (11.6-14.8); RED BLOOD COUNT 2.95 10^6/ul (4.20-5.40); WHITE BLOOD COUNT 19.88 K/ul (4.6-10.2)
[2021-08-29 14:04] LABS: ALANINE AMINOTRANSFERASE 97.7 U/L (0-35); ALBUMIN 2.83 g/dL (3.5-5.0); ALKALINE PHOSPHATASE 75.9 U/L (53-141); ASPARTATE AMINO TRANSFERASE 336.5 U/L (14-36); BILIRUBIN,TOTAL 3.98 mg/dL (0.2-1.3); BLOOD UREA NITROGEN 22.9 mg/dL (7-17); CALCIUM 8.77 mg/dL (8.4-10.2); CHLORIDE 106.7 mmol/L (98-107); CREATININE 1.11 mg/dL (0.60-1.30); GLUCOSE 95.4 mg/dL (74-106); POTASSIUM 3.35 mmol/L (3.5-5.1); SODIUM 138.4 mmol/L (134.5-145); TOTAL PROTEIN 5.39 g/dL (6.3-8.2)
[2021-08-29] MEDS: ZOSYN 4.5 GM 4.5 GM in SODIUM CHLORIDE 100ML 100 ML IV SCH ×3 (14:47→23:17)
[2021-08-29] MEDS: K-DUR PO SCH ×2 (14:59→17:28)
[2021-08-29] MEDS ORDERED: TRIGLIDE PO SCH (17:00)
[2021-08-29] MEDS ORDERED: MEVACOR PO SCH (17:00)
[2021-08-30 05:14] LABS: BASOPHILS % (AUTO) 0.1 % (0.0-3.0); EOSINOPHILS % (AUTO) 0.2 % (0.0-7.0); HEMOGLOBIN 8.9 g/dl (12.0-16.0); IMMATURE GRANULOCYTE # (AUTO) 0.1 (0.0-1.0); IMMATURE GRANULOCYTE % (AUTO) 0.5 % (0.0-5.0); LYMPHOCYTES % (AUTO) 7.4 (10.0-50.0); MEAN CORPUSCULAR HEMOGLOBIN 32.7 pg (27.0-31.0); MEAN CORPUSCULAR VOLUME 99.3 fl (81.0-99.0); MONOCYTES # (AUTO) 0.7 K/uL (0.4-2.0); MONOCYTES % (AUTO) 5.2 (0-10); NEUTROPHILS # (AUTO) 11.9 K/ul (2.0-6.9); NEUTROPHILS % (AUTO) 86.6 % (42.2-75.2); PLATELET COUNT 149 10^3/uL (140-440); RDW COEFFICIENT OF VARIATION 14.5 % (11.6-14.8); RED BLOOD COUNT 2.72 10^6/ul (4.20-5.40)
[2021-08-30] MEDS: ZOSYN 4.5 GM 4.5 GM in SODIUM CHLORIDE 100ML 100 ML IV SCH ×4 (05:24→23:46)
[2021-08-30 05:29] LABS: ALANINE AMINOTRANSFERASE 79.2 U/L (0-35); ALBUMIN 2.67 g/dL (3.5-5.0); BILIRUBIN,DIRECT 0.98 mg/dL (0.00-0.30); BILIRUBIN,TOTAL 2.77 mg/dL (0.2-1.3); BLOOD UREA NITROGEN 22.9 mg/dL (7-17); CALCIUM 8.1 mg/dL (8.4-10.2); CARBON DIOXIDE 23.6 mmol/L (22-30.0); CHLORIDE 110.8 mmol/L (98-107); GLUCOSE 75.3 mg/dL (74-106); SODIUM 138.8 mmol/L (134.5-145); TOTAL PROTEIN 5.1 g/dL (6.3-8.2)
[2021-08-30 05:32] LABS: POTASSIUM 3.59 mmol/L (3.5-5.1)
[2021-08-30 05:54] LABS: THYROID STIMULATING HORMONE 2.38 uIU/L (0.465-4.68)
[2021-08-30] MEDS: SYNTHROID PO SCH (05:54)
--- NOTE | 2021-08-30 09:27 | PCM.PROG ---
Attending Provider: ATTENDING PROVIDER: Dr. SHARON REINOSO This patient is seen with Rhea Salgado, Nurse Practitioner. DATE OF SERVICE: 08/30/21 SUBJECTIVE: This 80 year old /WHITE F was hospitalized 08/29/21. Not complaining of any abdominal pain. Hgb at 8.9. Liver enzymes still elevated but trending down. Some abdominal tenderness. Not wanting to eat much, scheduled for liver ultrasound this morning. REVIEW OF SYSTEMS: CONSTITUTIONAL: No night sweats. No fatigue, malaise, lethargy. No fever or chills. Weakness. HEENT: Eyes: No visual changes. No eye pain. No eye discharge. ENT: No runny nose. No epistaxis. No sinus pain. No odynophagia. No congestion. RESPIRATORY: No cough, no congestion. No hemoptysis. No shortness of breath. CARDIOVASCULAR: No angina symptoms. No CHF symptoms. No atypical chest pain for CAD. No palpitations. No orthopnea.. GASTROINTESTINAL: No abdominal pain. No nausea or vomiting. No diarrhea or constipation. No hematemesis. No hematochezia. Loss of appetite. GENITOURINARY: No urgency. No frequency. No dysuria. No hematuria. No ob structive symptoms. No discharge. No pain. No significant abnormal bleeding. MUSCULOSKELETAL: No musculoskeletal pain; no joint swelling. NEUROLOGICAL: Awake, alert, oriented to time, place and person. No headache. No neck pain. No syncope. No seizures. No dizziness. PSYCHIATRIC: Not anxious. No depression. No suicidal thoughts. No homicidal thoughts. SKIN: No rash. No lesions. No wounds. ENDOCRINE: No unexplained weight loss. No weight gain. HEMATOLOGIC/LYMPHATIC: No anemia. No purpura. No petechiae. No prolonged or excessive bleeding. No palpable lymph nodes. PHYSICAL EXAMINATION: GENERAL: The patient is awake, alert and oriented, lying in bed in no distress. VITAL SIGNS: Temperature 98.0 F, Pulse 65, Respiratory Rate 20, BP 116/70, Pulse Ox 99% HEENT: Head normocephalic, atraumatic. Eyes: Extraocular muscles are intact. Pupils are equal, round and reactive to light and accommodation. Ears: No lesions. Nose appeared normal. Throat: No exudate or erythema. NECK: Supple. No JVD, no carotid bruit. No lymphadenopathy or thyromegaly. LUNGS: Diminished breath sounds. Clear to auscultation. Percussion note normal. Chest symmetrical. HEART: S1, S2, no S3. No murmurs. No cyanosis or clubbing. No ascites. Pulses: Dorsalis pedis and posterior tibial pulses +1 to +2 both sides. ABDOMEN: Soft. Mild epigastric tenderness. Bowel sounds active. No CVA tenderness. No mass felt. EXTREMITIES: No edema. Full range of motion of all extremities, equal. NEUROLOGIC: No focal deficit. Cranial nerves II through XII are grossly intact. No headache. No double vision. SKIN: Not dry. Intact. Turgor-normal. LYMPHATIC: No palpable lymph nodes/no lymphedema. MUSCULOSKELETAL: Normal joints with no swelling. Muscle tone is normal. LAB REVIEW: 08/30/21 04:43 08/30/21 04:43 08/30/21 04:43: Free T4 1.92 08/30/21 04:43: Sodium 138.8, Potassium 3.59, Chloride 110.8 H, Carbon Dioxide 23.6, Anion Gap 7.99, BUN 22.9 H, Creatinine 1.00, Estimated GFR (MDRD) 53.00, BUN/Creatinine Ratio 22.90, Glucose 75.3, Calcium 8.10 L, Total Bilirubin 2.77 H , Direct Bilirubin 0.98 H D, AST 185.0 H D, ALT 79.2 H, Alkaline Phosphatase 74.0, Total Protein 5.10 L, Albumin 2.67 L, Globulin 2.43, Albumin/Globulin Ratio 1.09, TSH 2.380 D 08/30/21 04:43: WBC 13.70 H D, RBC 2.72 L, Hgb 8.9 L, Hct 27.0 L, MCV 99.3 H, MCH 32.7 H, MCHC 33.0, RDW Coeff of Ashley 14.5, Plt Count 149, Immature Gran % (Auto) 0.5, Neut % (Auto) 86.6 H, Lymph % (Auto) 7.4 L, [place] % (Auto) 5.2, Eos % (Auto) 0.2, Baso % (Auto) 0.1, Neut # (Auto) 11.9 H, Lymph # (Auto) 1.0, [place] # (Auto) 0.7, Eos # (Auto) 0.0, Baso # (Auto) 0.0, Immature Gran # (Auto) 0.1 08/29/21 07:45: Sodium 138.4, Potassium 3.35 L, Chloride 106.7, Carbon Dioxide 26.0, Anion Gap 9.05, BUN 22.9 H, Creatinine 1.11, Estimated GFR (MDRD) 47.00, BUN/Creatinine Ratio 20.63, Glucose 95.4, Calcium 8.77, Total Bilirubin 3.98 H, AST 336.5 H D, ALT 97.7 H, Alkaline Phosphatase 75.9, Total Protein 5.39 L, Albumin 2.83 L, Globulin 2.56, Albumin/Globulin Ratio 1.10 08/29/21 07:45: WBC 19.88 H D, RBC 2.95 L, Hgb 9.7 L, Hct 29.2 L, MCV 99.0, MCH 32.9 H, MCHC 33.2, RDW Coeff of Ashley 14.2, Plt Count 183, Immature Gran % (Auto) 0.5, Neut % (Auto) 90.2 H, Lymph % (Auto) 4.2 L, [place] % (Auto) 4.8, Eos % (Auto) 0.1, Baso % (Auto) 0.2, Neut # (Auto) 18.0 H, Lymph # (Auto) 0.8, [place] # (Auto) 1.0, Eos # (Auto) 0.0, Baso # (Auto) 0.0, Immature Gran # (Auto) 0.1 08/29/21 07:43: Free T4 2.44 H ASSESSMENT: Please see below. 1. UTI culture pending 2. Elevated liver function 3. History of biliary obstruction with stent in place 4. smoker 5. dehydration PLAN: 1. Hepatitis panel 2. Ultrasound of liver today 3. Discontinue Lovenox 4. Hold Fenofibrate and Lovastatin 5. 2D Echo 6. CT chest without Plan and coordination of the patient's care discussed in the presence of Magnetometer Operator and nurse. SCRIBED BY: KATIA CHILDRESS Ink Technician scribed while in presence of service performed by Dr. Reinoso/Rhea Salgado APRN on 08/30/21 ([id number])
--- NOTE | 2021-08-30 09:34 | CT ---
EXAM: CT chest without contrast. HISTORY: Shortness of breath. COMPARISON: Radiograph 08/28/2021, 06/04/2021. TECHNIQUE: Multiple axial images of the chest were obtained without intravenous contrast. Images we re reformatted in the sagittal and coronal planes. FINDINGS: Limited assessment for lymphadenopathy without contrast. Calcified and noncalcified lymph nodes present. Heart enlarged. Coronary artery aortic calcifications present. Small pericardial effusion noted. Small pleural effusions bilaterally. There is dependent consolidation in both lower lobes. No pneum othorax. Small hiatal hernia. Severe burst fracture of T11. IMPRESSION: 1. Small bilateral pleural effusions with dependent consolidation which could be due to pneumonia or edema. 2. Cardiomegaly, atherosclerosis and small pericardial effusion. All CT scans are performed using dose optimization techniques as appropriate to the performed exam an d include at least one of the following: Automated exposure control, adjustment of the mA and/or kV according t o size, and the use of iterative reconstruction technique.
[2021-08-30] MEDS: K-DUR PO SCH ×2 (09:36→17:07)
--- NOTE | 2021-08-30 09:50 | US ---
EXAM: Abdominal ultrasound limited HISTORY: Right upper quadrant pain. COMPARISON: CT abdomen pelvis 08/29/2021 TECHNIQUE: Sonographic and limited Doppler evaluation of the right upper quadrant was performed. FINDINGS: The liver is normal in echogenicity and measures 15.4 cm. The portal vein is patent. The gallbladder has been removed. Common bile duct is unremarkable and measures 0.8 cm in diameter. Th e pancreas is unremarkable in appearance. The right kidney is been removed. IMPRESSION: No sonographic abnormality to account for patient's symptoms.
[2021-08-30] MEDS: PROTONIX IV IVP SCH (10:18)
[2021-08-30] MEDS: SODIUM CHLORIDE 1,000 ML IV SCH (11:56)
--- NOTE | 2021-08-30 13:24 | HP ---
DATE OF SERVICE: 08/29/21 REASON FOR HOSPITALIZATION: Weakness. History of having fever and chills. HISTORY OF PRESENT ILLNESS: 80 year old white female was brought to the emergency room by ambulance because the family noticed that the patient was extremely weak and unable to get up according to the daughter the patient was feeling fine yesterday morning and she had good appetite. She got up on her own and was able to walk and do things on her own. In the afternoon she got cold and started having chills with hot feeling. She was unable to get out of chair. The ambulance and she was brought to the emergency room where ER attending examined and found to have possibility or urosepsis. Also the patient's liver profile was abnormal which could have been secondary to sepsis and dehydration. PAST MEDICAL HISTORY/PAST SURGICAL HISTORY: History of hypertension Dyslipidemia Hypothyroidism Leg edema Chronic lung disease Renal mass right side Nephrectomy right side Mastectomy REVIEW OF SYSTEMS: CONSTITUTIONAL: No night sweats. No fever or chills. Weakness and fatigue. HEENT: Eyes: No visual changes. No eye pain. No eye discharge. ENT: No runny nose. No epistaxis. No sinus pain. No sore throat. No odynophagia. No ear pain. No congestion. RESPIRATORY: No cough, no congestion. No hemoptysis. Shortness of breath. CARDIOVASCULAR: No angina symptoms. No CHF symptoms. No atypical chest pain for CAD. No palpitations. No PND. No orthopnea. GASTROINTESTINAL: No abdominal pain. Nauseated. Poor appetite for past several hours. No diarrhea or constipation. No hematemesis. No hematochezia. GENITOURINARY: No urgency. No frequency. No dysuria. No hematuria. No obstructive symptoms. No discharge. No pain. No significant abnormal bleeding. MUSCULOSKELETAL: No musculoskeletal pain. No joint swelling. No arthritis. Weakness of the muscles to get up. NEUROLOGICAL: No headache. No neck pain. No syncope. No seizures. No dizziness. PSYCHIATRIC: Not anxious. No depression. No suicidal thoughts. No homicidal thoughts. SKIN: No rash. No lesions. No wounds. ENDOCRINE: No unexplained weight loss. No weight gain. HEMATOLOGIC/LYMPHATIC: No anemia. No purpura. No petechiae. No prolonged or excessive bleeding. No palpable lymph nodes. PERSONAL/FAMILY/SOCIAL HISTORY: The patient is , lives by herself with the help of daughter. no alcohol abuse. Does some of the activity of daily living, Some of activity of daily living like bathing etc. MEDICATIONS: Carvedilol Lisinopril Aspirin Lovastatin Levothyroxine Fenofibrate Amlodipine Dyazide PHYSICAL EXAMINATION: GENERAL: The patient is oriented to time, place and person but not saying much. VITAL SIGNS: Temperature 97.6, pulse 27, respiratory rate 18, blood pressure 105/65 and pulse ox 98%. HEENT: Head normocephalic, atraumatic. Eyes: Extraocular muscles are intact. Pupils are equal, round and reactive to light and accommodation. Ears: No lesions. Nose appeared normal. Throat: No exudate or erythema. Somewhat pale. NECK: Supple. No JVD, no carotid bruit. No lymphadenopathy or thyromegaly. LUNGS: Decreased breath sounds but good air entry. Percussion note normal. Chest symmetrical. HEART: S1, S2, no S3. Grade II/ systolic murmur. No cyanosis or clubbing. No ascites. Pulses: Dorsalis pedis and posterior tibial pulses +1 feeble bilaterally. ABDOMEN: Soft. Nontender. Protuberant. Bowel sounds active. No CVA tenderness. No mass felt. EXTREMITIES: No edema. Full range of motion of all extremities, equal. Dried up skin. NEUROLOGIC: No focal deficit. Cranial nerves II through XII are grossly intact. No headache, no double vision or headache. SKIN: Not dry. Intact. Turgor - normal. LYMPHATIC: No palpable lymph nodes/no lymphedema. MUSCULOSKELETAL: Normal joints with no swelling. Muscle tone is normal. LABS: U/A abnormal with 4+ bacteria, 2+ bilirubin. Procalcitonin high 27, lactic acid [address] scan of the abdomen and pelvis without contrast negative. Respiratory panel with COVID negative. Influenza virus negative. Potassium 3.8, total bilirubin 3.4, AST 391, ALT 80. PROBNP 1220. Hgb 11, hct 33, WBC 13,000 mild shift to the left. ASSESSMENT: 1. Likely urosepsis with dehydration 2. Abnormal liver enzymes with negative CT scan of the abdomen could be dehydration with sepsis 3. History of hypertension, the patient has hypotension in the emergency room 4. Chronic anemia 5. History of renal mass with nephrectomy 6. Heavy smoker with chronic lung disease 7. Dyslipdiemia PLAN: 1. Admit the patient 2. Slow IV fluids 3. Antibiotics Zosyn 4. Telemetry 5. 4mg Dexamethasone daily 6. Routine telemetry orders 7. Hepatis profile 8. Ultrasound of the liver 9. Daily CBC and CMP The patient is DNR CONDITION: Stable. This morning when I saw the patient shows some improvement clinically. The patient's repeat CBC showed that the patient's liver profile has been more or less the same and unchanged. Mild hypokalemia noted which we will given Potassium supplements. The patient is DNR. TIME SPENT: More than 70 minutes. MTDD
--- NOTE | 2021-08-30 15:52 | RS.PTINEVL ---
Subjective - Patient information Date of Evaluation: 08/30/21 Date of Arrival on Unit: 08/28/21 Admitted From:: Home Diagnosis: sepsis, UTI, elevated liver enzymes Usual Living Arrangement: With Others Living Arrangement Comments: lives w dtr, has several steps to enter home. Home Environment: House, Stairs (few), Rail Medical History: Hypertension, COPD Medical History Comments:: R renal mass Surgical History: Cholecystectomy Surgical History Comments:: R nephrectomy Medications: see chart Subjective Information/ Patient Comments:: pt states that she will try to walk, she states she knows she needs to try. - Level of function Prior to this admission, the patient could do the following:: Independent Ambulation Abilities prior to this admission: Dtr assisted with some ADL's Current Level of Function: Partially Dependent Current Equipment Used at Home: rolling walker Interventions - Objective Patient Orientation: Person, Place, Situation Current Interventions: IV's, Telemetry, Granda Catheter Observation: increased thoracic kyphosis Range of Motion - ROM Right Upper Extremity AROM: WFL's Left Upper Extremity AROM: WFL's Right Lower Extremity AROM: WFL's Left Lower Extremity AROM: WFL's Muscle Strength - Muscle Strength Right Upper Extremity Strength: Mild Weakness (grossly 4-/5) Left Upper Extremity Strength: Mild Weakness (grossly 4-/5) Right Lower Extremity Strength: Mild Weakness (hip flex 4-/5, knee flex/ext 4/5, ankle DF/PF 4/5) Left Lower Extremity Strength: Mild Weakness (hip flex 4-/5, knee flex/ext 4/5, ankle DF/PF 4/5) Sensation - Sensation Right Upper Extremity Sensation: Intact/Normal Left Upper Extremity Sensation: Intact/Normal Right Lower Extremity Sensation: Intact/Normal Left Lower Extremity Sensation: Intact/Normal Balance - Sitting Balance and Reactions Static Sitting Balance: Fair Dynamic Sitting Balance: Poor Sitting Equilibrium Reactions: Delayed Left, Delayed Right Sitting Protective Reactions: Delayed Left, Delayed Right - Standing Balance and Reactions Static Standing Balance: Poor Dynamic Standing Balance: Poor Standing Equilibrium Reactions: Delayed Left, Delayed Right Standing Protective Reactions: Delayed Left, Delayed Right Functional Mobility - Bed Mobility Rolling R/L: Mod Assist, 1 person assist Scooting: Max Assist, 2 person assist Supine to Sit: Min Assist, 1 person assist Sit to Supine: Mod Assist, 1 person assist - Transfers Sit to Stand: Min Assist Stand to Sit: Min Assist - Safety Awareness Safety Awareness: Fair CATE INDEX SCORE: n/a Ambulation - Ambulation Assistive Device Used: Rolling Walker Orthotic/Prosthetic Device: No Distance: 35 Assistance needed with Ambulation: Min Assist Gait Deviations: Forward posture, Short stride, Deviates from path Factors Affecting Ambulation: Decreased Balance, Weakness, Dizziness, Decreased Safety, Limited Endurance Treatment time - Time with patient Length of Evaluation: 19 Total treatment time: 24 Patient Education - Education Patient Education: Activity Modification, Education of Plan of Care Teaching Recipient: Patient Teaching Methods: Discussion Comments: discussion regarding POC Assessment - Assessment Problem List:: Decreased level of function, Requires training/education, Decreased safety/Risk of falls, Weakness, Cognitive status limits abilities Rehab Potential: Fair Further Therapy Indicated?: Yes Candidate for Swing Bed for Therapy Services?: Feel pt may be a candidate for swing bed if pt able to tolerate therapy. Evaluation Complexity: HISTORY: Medium, EXAM OF BODY SYSTEMS: Medium, CLINICAL PRESENTATION: Medium, CLINICAL DECISION MAKING: Medium Patient's Goal(s): Be able to walk better. Short Term Goals GOAL #1: pt demonstrate rolling and scooting with min x 1 Goal to be met by: 09/01/21 GOAL #2: Transfer sup to/from sit min x 1 Goal to be met by: 09/01/21 GOAL #3: Transfer sit to/from stand CGA Goal to be met by: 09/01/21 GOAL #4: pt amb 75ft with rwx with CGA with improved posture. Goal to be met by: 09/01/21 GOAL #5: Improve BLE strength 4 to 4+/5 Goal to be met by: 09/01/21 It Administrator Goals GOAL #1: Transfer sup to/from sit to/from stand CGA Goal to be met by: 09/03/21 GOAL #2: pt amb with rwx functional household distances with SBA to CGA Goal to be met by: 09/03/21 GOAL #3: Ascend/descend 3 steps w handrail CGA Goal to be met by: 09/03/21 Plan Plan of Care: Therapeutic EX, Therapeutic Activity Other:: gait training Frequency of Treatment: 1-2 X day, as tolerated Duration of Treatment: 5 days Anticipated Discharge Destination: Home Treatment Diagnosis (ICD 10 Codes): difficulty walking R 26.2. balance impaired R 26.81. weakness M62.81 Has the Physician been added for Co-signature?: Yes
[2021-08-31 05:20] LABS: BASOPHILS % (AUTO) 0.2 % (0.0-3.0); EOSINOPHILS % (AUTO) 0.3 % (0.0-7.0); HEMATOCRIT 29.1 % (37.0-47.0); HEMOGLOBIN 9.5 g/dl (12.0-16.0); IMMATURE GRANULOCYTE # (AUTO) 0.1 (0.0-1.0); LYMPHOCYTES # (AUTO) 1.1 K/uL (0.60-3.4); LYMPHOCYTES % (AUTO) 11.9 (10.0-50.0); MEAN CORPUSCULAR HEMOGLOBIN 32.3 pg (27.0-31.0); MEAN CORPUSCULAR HGB CONC 32.6 (31.8-35.4); MONOCYTES # (AUTO) 0.5 K/uL (0.4-2.0); MONOCYTES % (AUTO) 5.2 (0-10); NEUTROPHILS # (AUTO) 7.6 K/ul (2.0-6.9); NEUTROPHILS % (AUTO) 81.4 % (42.2-75.2); PLATELET COUNT 147 10^3/uL (140-440); RDW COEFFICIENT OF VARIATION 14.6 % (11.6-14.8); RED BLOOD COUNT 2.94 10^6/ul (4.20-5.40); WHITE BLOOD COUNT 9.36 K/ul (4.6-10.2)
[2021-08-31] MEDS: ZOSYN 4.5 GM 4.5 GM in SODIUM CHLORIDE 100ML 100 ML IV SCH ×3 (05:34→19:29)
[2021-08-31 05:35] LABS: ALANINE AMINOTRANSFERASE 57.8 U/L (0-35); ALBUMIN 2.78 g/dL (3.5-5.0); ALKALINE PHOSPHATASE 90.4 U/L (53-141); ASPARTATE AMINO TRANSFERASE 84.9 U/L (14-36); BILIRUBIN,TOTAL 1.53 mg/dL (0.2-1.3); BLOOD UREA NITROGEN 21.3 mg/dL (7-17); CALCIUM 8.12 mg/dL (8.4-10.2); CARBON DIOXIDE 22.3 mmol/L (22-30.0); CHLORIDE 113.1 mmol/L (98-107); CREATININE 0.92 mg/dL (0.60-1.30); POTASSIUM 4.18 mmol/L (3.5-5.1); SODIUM 140.6 mmol/L (134.5-145); TOTAL PROTEIN 5.31 g/dL (6.3-8.2)
[2021-08-31] MEDS: SYNTHROID PO SCH (05:35)
[2021-08-31] MEDS: SODIUM CHLORIDE 1,000 ML IV SCH ×2 (06:24→09:36)
--- NOTE | 2021-08-31 09:29 | PCM.PROG ---
Attending Provider: ATTENDING PROVIDER: Dr. SHARON REINOSO This patient is seen with Rhea Salgado, Nurse Practitioner. DATE OF SERVICE: 08/31/21 SUBJECTIVE: This 80 year old /WHITE F was hospitalized 08/29/21. White count has imptoved. Hgb has improved. Both urine and blood cultures are positive for Klebsiella today. Liver ultrasound was consistent with fatty liver. Liver function is trending down. The patient is a possible candidate for swing bed for IV antibiotics. REVIEW OF SYSTEMS: CONSTITUTIONAL: No night sweats. No fatigue, malaise, lethargy. No fever or chil ls. Weakness. HEENT: Eyes: No visual changes. No eye pain. No eye discharge. ENT: No runny nose. No epistaxis. No sinus pain. No odynophagia. No congestion. RESPIRATORY: No cough, no congestion. No hemoptysis. Shortness of breath. CARDIOVASCULAR: No angina symptoms. No CHF symptoms. No atypical chest pain for CAD. No palpitations. No orthopnea.. GASTROINTESTINAL: No abdominal pain. No nausea or vomiting. No diarrhea or constipation. No hematemesis. No hematochezia. GENITOURINARY: No urgency. No frequency. No dysuria. No hematuria. No obstructive symptoms. No discharge. No pain. No significant abnormal bleeding. MUSCULOSKELETAL: No musculoskeletal pain; no joint swelling. NEUROLOGICAL: Awake, alert, oriented to time, place and person. No headache. No neck pain. No syncope. No seizures. No dizziness. PSYCHIATRIC: Not anxious. No depression. No suicidal thoughts. No homicidal thoughts. SKIN: No rash. No lesions. No wounds. ENDOCRINE: No unexplained weight loss. No weight gain. HEMATOLOGIC/LYMPHATIC: No anemia. No purpura. No petechiae. No prolonged or excessive bleeding. No palpable lymph nodes. PHYSICAL EXAMINATION: GENERAL: The patient is awake, alert and oriented, lying in bed in no distress. VITAL SIGNS: Temperature 97.0 F, Pulse 64, Respiratory Rate 18, BP 136/61, Pulse Ox 98% HEENT: Head normocephalic, atraumatic. Eyes: Extraocular muscles are intact. Pupils are equal, round and reactive to light and accommodation. Ears: No lesions. Nose appeared normal. Throat: No exudate or erythema. NECK: Supple. No JVD, no carotid bruit. No lymphadenopathy or thyromegaly. LUNGS: Diminished breath sounds. Clear to auscultation. Percussion note normal. Chest symmetrical. HEART: S1, S2, no S3. Grade I/ systolic murmurs. No cyanosis or clubbing. No ascites. Pulses: Dorsalis pedis and posterior tibial pulses +1 to +2 both sides. ABDOMEN: Soft. Non-tender. Bowel sounds active. No CVA tenderness. No mass felt. EXTREMITIES: No edema. Full range of motion of all extremities, equal. NEUROLOGIC: No focal deficit. Cranial nerves II through XII are grossly intact. No headache. No double vision. SKIN: Not dry. Intact. Turgor-normal. LYMPHATIC: No palpable lymph nodes/no lymphedema. MUSCULOSKELETAL: Normal joints with no swelling. Muscle tone is normal. LAB REVIEW: 08/31/21 04:50 08/31/21 04:50 08/31/21 04:50: Sodium 140.6, Potassium 4.18, Chloride 113.1 H, Carbon Dioxide 22.3, Anion Gap 9.38, BUN 21.3 H, Creatinine 0.92, Estimated GFR (MDRD) 59.00, BUN/Creatinine Ratio 23.15, Glucose 90.0, Calcium 8.12 L, Total Bilirubin 1.53 H , AST 84.9 H D, ALT 57.8 H, Alkaline Phosphatase 90.4, Total Protein 5.31 L, Albumin 2.78 L, Globulin 2.53, Albumin/Globulin Ratio 1.09 08/31/21 04:50: WBC 9.36, RBC 2.94 L, Hgb 9.5 L, Hct 29.1 L, MCV 99.0, MCH 32.3 H, MCHC 32.6, RDW Coeff of Ashley 14.6, Plt Count 147, Immature Gran % (Auto) 1.0, Neut % (Auto) 81.4 H, Lymph % (Auto) 11.9, [place] % (Auto) 5.2, Eos % (Auto) 0.3, Baso % (Auto) 0.2, Neut # (Auto) 7.6 H, Lymph # (Auto) 1.1, [place] # (Auto) 0.5, Eos # (Auto) 0.0, Baso # (Auto) 0.0, Immature Gran # (Auto) 0.1 ASSESSMENT: Please see below. 1. Urosepsis positive Klebsiella 2. Elevated liver function 3. Fatty liver 4. COPD 5. Chronic anemia PLAN: 1.2d echo 2. Discontinue iv fluids 3. Florastor BID 4. Continue IV antibiotics Plan and coordination of the patient's care discussed in the presence of Bottle Labeler and nurse. SCRIBED BY: Jerri CLIFTONist scribed while in presence of service performed by Dr. Reinoso/Rhea Salgado APRN on 08/31/21 ([id number])
[2021-08-31] MEDS: FLORASTOR PO SCH ×2 (09:35→20:10)
[2021-08-31] MEDS: PROTONIX IV IVP SCH (09:35)
[2021-08-31] MEDS: K-DUR PO SCH ×2 (09:35→17:03)
--- NOTE | 2021-08-31 11:37 | RS.OTINEVL ---
Subjective - Patient information Date of Evaluation: 08/31/21 Date of Arrival on Unit: 08/28/21 Admitted From:: Home Diagnosis: Sepsis, UTI, Increased liver enzymes PRECAUTIONS: fall risk Usual Living Arrangement: With Others Living Arrangement Comments: lives w dtr, has several steps (4) to enter home. Home Environment: House, Stairs (few), Rail Medical History: Hypertension, COPD Medical History Comments:: R renal mass Surgical History: Cholecystectomy Surgical History Comments:: R nephrectomy Medications: see chart Subjective Information/ Patient Comments:: Pt wanted to know when she could go back to bed. - Level of function Prior to this admission, the patient could do the following:: Independent Ambulation Abilities prior to this admission: Pt able to walk independently with RW before illness. Pt was able to cook some small meals. Pt had Caregivers to help her with bathing and other ADLS. Current Level of Function: Partially Dependent Current Equipment Used at Home: rolling walker Pain Assessment - Pain Pain Score: 0 Interventions - Objective Patient Orientation: Person, Place, Time, Situation Current Interventions: IV's, Telemetry, Granda Catheter Observation: Pt stands with neck flexion and looks at the floor majority of the time. Pt required moderate assistance to get out of bed. Pt min A for functional transfers. Pt has full AROM of BUE. Interventions - ROM Right Upper Extremity AROM: WFL's Left Upper Extremity AROM: WFL's - Strength Right Upper Extremity Strength: Mild Weakness Left Upper Extremity Strength: Mild Weakness - Sensation Right Upper Extremity Sensation: Intact/Normal Left Upper Extremity Sensation: Intact/Normal Balance - Sitting Balance Static Sitting Balance: Fair Dynamic Sitting Balance: Fair - Standing Balance Static Standing Balance: Poor Dynamic Standing Balance: Poor ADL Skills - Self Feeding Self Feeding: Independent - Grooming Grooming: Min Assist - Bathing Bathing UE: Independent Bathing LE: Min Assist Bathing Set-up: Shower - Dressing Dressing UE: Min Assist Dressing LE: Min Assist - Toilet Management Toilet Hygiene: Independent Toilet Clothing Management: CGA Functional Mobility - Bed Mobility Supine to Sit: Mod Assist - Transfers Sit to Stand: CGA Stand to Sit: Min Assist - Ambulation Weight Bearing Status: FWB Assistive Device Used: Rolling Walker Assistance needed with Ambulation: Min Assist Comments:: Pt requires verbal cues to stay close to the RW. - Safety Awareness Safety Awareness: Fair CATE INDEX SCORE: . Additional Treatment Performed - Time with patient Length of Evaluation: 18 Total treatment time: 23 Activities Would you be interested in leaving your room for activities?: Yes Would you enjoy group activities?: Yes Do you have difficulty with your vision?: Yes Patient Interests:: Watching Television, Visiting/Socializing Patient Education Patient Education: Home Exercise Program, Education of Plan of Care Teaching Recipient: Patient Teaching Methods: Discussion Assessment Problem List:: Decreased level of function, Decreased safety/Risk of falls, Weakness Rehab Potential: Good Further Therapy Indicated?: Yes Evaluation Complexity: HISTORY: Medium, EXAM OF BODY SYSTEMS: Medium, CLINICAL DECISION MAKING: Medium Patient's Goal(s): To get stronger and to return to her home. Short Term Goals - Goals GOAL 1: Pt to tolerate sitting in chair for 2 hours to be able to eat in sitting. Goal to be met by: 09/03/21 GOAL 2: Pt to increase dyn. std. bal. to Fair. Goal to be met by: 09/03/21 GOAL 3: Pt to tolerate sink level ADLS CGA. Goal to be met by: 09/03/21 GOAL 4: Pt to increase Activity tolerance to 10 minutes. Goal to be met by: 09/03/21 Half-Way Goals GOAL 1: Pt to tolerate sitting in chair 5 hours a day. Goal to be met by: 09/06/21 GOAL 2: Pt to complete sink level ADL SUP. Goal to be met by: 09/06/21 GOAL 3: Pt to increase dyn. std. bal. to Fair+ to increase safety of Transfers. Goal to be met by: 09/06/21 Plan Plan of Care: Therapeutic EX, Therapeutic Activity, Self-Care/Home Management Frequency of Treatment: 1-2 X day, as tolerated Duration of Treatment: 1 Week Anticipated Discharge Destination: Home Treatment Diagnosis (ICD 10 Codes): M62.81 Weakness, Z74.1 Need for assistance with self care. Has the Physician been added for Co-signature?: Yes
[2021-08-31 21:14] VITALS: TEMP 97.8
[2021-09-01] MEDS: ZOSYN 4.5 GM 4.5 GM in SODIUM CHLORIDE 100ML 100 ML IV SCH ×2 (00:20→05:44)
[2021-09-01 05:05] VITALS: BP 152/77
[2021-09-01 05:12] LABS: BASOPHILS % (AUTO) 0.4 % (0.0-3.0); EOSINOPHILS % (AUTO) 0.5 % (0.0-7.0); HEMOGLOBIN 9.6 g/dl (12.0-16.0); IMMATURE GRANULOCYTE # (AUTO) 0.1 (0.0-1.0); IMMATURE GRANULOCYTE % (AUTO) 1.9 % (0.0-5.0); LYMPHOCYTES # (AUTO) 1.6 K/uL (0.60-3.4); LYMPHOCYTES % (AUTO) 21.6 (10.0-50.0); MEAN CORPUSCULAR HEMOGLOBIN 32.5 pg (27.0-31.0); MEAN CORPUSCULAR HGB CONC 33.1 (31.8-35.4); MEAN CORPUSCULAR VOLUME 98.3 fl (81.0-99.0); MONOCYTES # (AUTO) 0.4 K/uL (0.4-2.0); MONOCYTES % (AUTO) 5.8 (0-10); NEUTROPHILS # (AUTO) 5.1 K/ul (2.0-6.9); NEUTROPHILS % (AUTO) 69.8 % (42.2-75.2); PLATELET COUNT 141 10^3/uL (140-440); RDW COEFFICIENT OF VARIATION 14.5 % (11.6-14.8); RED BLOOD COUNT 2.95 10^6/ul (4.20-5.40); WHITE BLOOD COUNT 7.36 K/ul (4.6-10.2)
[2021-09-01 05:25] LABS: ALANINE AMINOTRANSFERASE 38.2 U/L (0-35); ALBUMIN 2.61 g/dL (3.5-5.0); ASPARTATE AMINO TRANSFERASE 42.5 U/L (14-36); BILIRUBIN,TOTAL 1.04 mg/dL (0.2-1.3); BLOOD UREA NITROGEN 16.9 mg/dL (7-17); CALCIUM 8.51 mg/dL (8.4-10.2); CARBON DIOXIDE 24.4 mmol/L (22-30.0); CHLORIDE 112.2 mmol/L (98-107); CREATININE 0.94 mg/dL (0.60-1.30); GLUCOSE 102.3 mg/dL (74-106); POTASSIUM 4.36 mmol/L (3.5-5.1); SODIUM 140.6 mmol/L (134.5-145); TOTAL PROTEIN 5.02 g/dL (6.3-8.2)
[2021-09-01] MEDS: SYNTHROID PO SCH (05:44)
[2021-09-01] MEDS: K-DUR PO SCH (08:22)
[2021-09-01] MEDS: FLORASTOR PO SCH (08:22)
[2021-09-01] MEDS: PROTONIX IV IVP SCH (09:13)
[2021-09-01 09:23] LABS: HBsAgSCREEN NEGATIVE; HEP A AB, IgM NEGATIVE; HEP B CORE Ab, IgM NEGATIVE
[2021-09-01 09:25] LABS: HEP C VIRUS AB < 0.1
[2021-09-01] MEDS ORDERED: ROCEPHIN 1 GM/50 ML D5W 1 GM/50 ML BAG IV SCH (11:30)
[2021-09-01] MEDS ORDERED: NEURONTIN PO SCH (21:00)
--- NOTE | 2021-09-03 10:10 | PN ---
DATE OF SERVICE: 08/30/21 SUBJECTIVE: 80 year old white female hospitalized with sepsis, elevated liver functions. The patient's condition is improving. The patient is going to be continued on antibiotics. Diet seems to be improving. Cardiovascular status is stable. The patient has systolic murmurs, we will evaluate with echo to rule out endocarditis. Condition seems to be improving. The patient was seen and examined with the Nurse Practitioner. TIME SPENT: More than 30 minutes. Plan and coordination of the patient's care discussed in the presence of nurse. ANGELICA
--- NOTE | 2021-09-03 10:14 | PN ---
DATE OF SERVICE: 08/31/21 SUBJECTIVE: The patient was seen and examined with the Nurse Practitioner. The patient has blood cultures and urine cultures growing Klebsiella Pneumoniae. We will do the echocardiogram to rule out endocarditis. Condition is improving. Antibiotics has been switched to Rocephin. Condition stable. TIME SPENT: More than 30 minutes. Plan and coordination of the patient's care discussed in the presence of nurse. ANGELICA
--- NOTE | 2021-09-03 10:44 | PN ---
DATE OF SERVICE: 09/01/21 SUBJECTIVE: 80 year old female hospitalized with sepsis which is Klebsiella with urinary tract infection and elevated liver enzymes. Liver enzymes are coming back to normal. No Jaundice noted. The patient is feeling a lot better. Some neuropathy type of pain in both lower extremities. REVIEW OF SYSTEMS: CONSTITUTIONAL: No night sweats. No fatigue, malaise, lethargy. No fever or chills. HEENT: Eyes: No visual changes. No eye pain. No eye discharge. ENT: No runny nose. No epistaxis. No sinus pain. No sore throat. No odynophagia. No congestion. RESPIRATORY: No cough, no congestion. No hemoptysis. No shortness of breath. CARDIOVASCULAR: No angina symptoms. No CHF symptoms. No atypical chest pain for CAD. No palpitations. No PND. No orthopnea. GASTROINTESTINAL: No abdominal pain. No nausea or vomiting. No diarrhea or constipation. No hematemesis. No hematochezia. Appetite has improved. GENITOURINARY: No urgency. No frequency. No dysuria. No hematuria. No obstructive symptoms. No discharge. No pain. No significant abnormal bleeding. MUSCULOSKELETAL: No musculoskeletal pain; no joint swelling. NEUROLOGICAL: No headache. No neck pain. No syncope. No seizures. No dizziness. PSYCHIATRIC: Not anxious. No depression. No suicidal thoughts. No homicidal thoughts. SKIN: No rash. No lesions. No wounds. ENDOCRINE: No unexplained weight loss. No weight gain. HEMATOLOGIC/LYMPHATIC: No anemia. No purpura. No petechiae. No prolonged or excessive bleeding. No palpable lymph nodes. PHYSICAL EXAMINATION: VITAL SIGNS: Temperature 97.8, pulse 66, respiratory rate 20, blood pressure 152/77 and pulse ox 95%. HEENT: Head normocephalic, atraumatic. Eyes: Extraocular muscles are intact. Pupils are equal, round and reactive to light and accommodation. Ears: No lesions. Nose appeared normal. Throat: No exudate or erythema. NECK: Supple. No JVD, no carotid bruit. No lymphadenopathy or thyromegaly. LUNGS: Decreased breath sounds but clear to auscultation. Percussion note normal. Chest symmetrical. HEART: S1, S2, no S3. Grade II/ systolic murmurs. No cyanosis or clubbing. No ascites. Pulses: Dorsalis pedis and posterior tibial pulses +1 to +2 bilaterally. ABDOMEN: Soft. Nontender. Bowel sounds active. No CVA tenderness. No mass felt. EXTREMITIES: Trace edema. Lower extremity has evidence of chronic edema with puckered skin, dry. Full range of motion of all extremities, equal. NEUROLOGIC: No focal deficit. Cranial nerves II through XII are grossly intact. No headache. No double vision. SKIN: Not dry. Intact. Turgor - normal. LYMPHATIC: No palpable lymph nodes/no lymphedema. MUSCULOSKELETAL: Normal joints with no swelling. Muscle tone is normal. LABS: Hgb 9.6, hct 29, WBC 7,300 normal differential, creatinine 0.9, BUN 16, potassium 4.3 ASSESSMENT: 1. Klebsiella septicemia from UTI PLAN: 1. Discontinue Zosyn and put her on Rocephin 2. We will put the patient on swing bed. 3. Echo was done which did not show any evidence of vegetation from the valves. The patient had calcified aortic valves with practically no stenosis. Also calcified mitral valve annulus. Enlarged LA cavity. Normal LV contractility. Echo is unchanged from the one done before. It was done to rule out any vegetations. TIME SPENT: More than 30 minutes. Plan and coordination of the patient's care discussed in the presence of nurse. ANGELICA
--- NOTE | 2021-09-07 11:40 | ECHO2D ---
Date of Exam: 09/01/2021 Ordering Physician: DR. REINOSO Room #: 101 Reason for Echo: WEAKNESS, SHORTNESS OF BREATH, LEG EDEMA, SEPSIS M-Mode Normal Adult Results LV Dimensions Normal Adult Results AoV Opening excursions >1.6 1.3 LVEDD-base- 3.5-5.8 5.2 Ao root dimensions 2.0-3.7 2.9 LVESD-base- 3.1-4.6 L. Atrium dimensions 1.9-3.8 5.5 Post. Wall thickness 0.8-1.1 1.1 IV septum (thickness) 0.7-1.2 1.2 Post. Wall excursion 0.72-1.3 NORMAL Septal motion NORMAL Systolic motion R. Ventricular cavity 1.5-2.0 3.5 LVEF 60% 55% Paradoxical septal wall motion NORMAL 2-D : ENLARGED LEFT ATRIAL/RIGHT VENTRICLE CAVITIES, NORMAL LEFT VENTRICULAR CONTRACTILITY AND LEFT VENTRICLE SIZE, CALCIFIC AORTIC VALVES, NO EFFUSION, NO THROMBUS, GOOD AORTIC CUSP SEPARATION NOTED. M-MODE: MV: CALCIFIC MITRAL VALVE ANNULUS AV: CALCIFIC AORTIC VALVES TV: NORMAL PV: NORMAL CHAMBER SIZE: ENLARGED RIGHT VENTRICLE/LEFT ATRIAL CAVITIES WALL MOTION: NORMAL PERICARDIUM: NORMAL INTERPRETATION: 1. 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 2. ENLARGED RIGHT VENTRICLE CAVITY. 3. CALCIFIC MITRAL VALVE ANNULUS. 4. CALCIFIC AORTIC VALVE LEAFLET. 5. NORMAL LEFT VENTRICLE SIZE AND CONTRACTILITY. MTDD
--- NOTE | 2021-10-12 14:32 | DS ---
DATE OF SERVICE: 09/01/21 FINAL DIAGNOSIS: 1. Urosepsis positive Klebsiella, urine culture an blood culture 2. COPD 3. Chronic leg edema 4. Chronic kidney disease 5. Obesity 6. Generalized weakness DISCHARGE INSTRUCTIONS: Discharge to swing bed. MEDICATIONS AT DISCHARGE: Lisinopril 40mg PO daily Coreg 25mg PO BID Lovastatin 40mg PO bedtime Aspirin 81mg PO daily Levothyroxine 100mcg PO daily Tricor 125mg PO daily Norvasc 5mg PO BID Triamterene-Hydrochlorothiazide 37.5-25mg one capsule PO three times per week. HOSPITAL COURSE: 80 year old white female who came in through the emergency room with weakness and hypotension. She was found to have UTI was initially started on Zosyn and Rocephin IV. Urine culture revealed positive Klebsiella which was sensitive to Rocephin. Blood cultures were also positive for Klebsiella which was still sensitive to the Rocephin. Initially showed elevated liver function, steadily improved on it's own. Renal ultrasound was normal. She denied any abdominal pain. Also had some shortness of breath. Initially was also placed on Decadron 4mg IM daily and started on NEBS treatment. Shortness of breath and cough had since improved. She does have a long history of COPD. Liver function is normal. Once found positive blood culture Dr. Triplett performed echo, no signs of endocarditis were noted. She had fever for the first 48 hours and has since resolved. She has been eating well. We will discharge her to swing bed for continue IV antibiotics due to positive blood cultures along with physical and occupational therapy and generalized weakness. TIME SPENT: More than 60 minutes. [facility]
== END 2021-09-01 12:50 | disposition swing bed (61) | DRG 689 ==
LOC: ED 22:29 → MEDSURG A 08-29 01:58
PROVIDERS: ADMIT Internal Medicine; ATTEND Internal Medicine
DX: J44.9 Chronic obstructive pulmonary disease, unspecified; R74.01 Elevation of levels of liver transaminase levels; I12.9 Hypertensive chronic kidney disease with stage 1 through stage 4 chronic kidney disease, or unspecified chronic kidney disease; N39.0 Urinary tract infection, site not specified; E66.9 Obesity, unspecified; Z51.81 Encounter for therapeutic drug level monitoring; Z85.528 Personal history of other malignant neoplasm of kidney; E86.0 Dehydration; R60.0 Localized edema; Z68.24 Body mass index [BMI] 24.0-24.9, adult; Z20.822 Contact with and (suspected) exposure to COVID-19; R65.21 Severe sepsis with septic shock; Z96.89 Presence of other specified functional implants; D64.9 Anemia, unspecified; Z79.82 Long term (current) use of aspirin; E78.5 Hyperlipidemia, unspecified; F17.210 Nicotine dependence, cigarettes, uncomplicated; B96.1 Klebsiella pneumoniae [K. pneumoniae] as the cause of diseases classified elsewhere; Z79.899 Other long term (current) drug therapy